=== PATIENT | male | born 1940 | race Caucasian/White ===

== ENCOUNTER 2017-12-28 15:49 | Inpatient (IN) | payer MEDICARE, OTHER, SELFPAY ==
[2017-12-28] VITALS (12 sets, daily range): BP systolic 124–163; BP diastolic 74–82; PULSE 64–101; RESP 16–31; TEMP 37.2; O2SAT 92–97
--- NOTE | 2017-12-28 16:12 | DI.RPTCT_ITS ---
SYMPTOM/DIAGNOSIS: BILAT LEG WEAKNESS, ? ACUTE CVA OR MASS NONCONTRAST HEAD CT: Comparison is made with 05/08/17 and 10/28/17. Since the prior examination, the patient has had a right frontal Osm[place] hole placed. There are persistent bilateral subdural hygromas which appear mostly chronic. There has developed high density material beneath the right posterior frontal bone and anterior parietal bone. This should be considered acute hemorrhage until proven otherwise. There is no acute midline shift or mass effect noted. The ventricles and sulci are consistent with the patient's age. The ventricles are intact. The basilar cisterns are patent. Areas of decreased attenuation are seen in the white matter consistent with small vessel ischemic disease. No acute fracture is appreciated. The visualized paranasal sinuses are mostly clear. The mastoid air cells are well pneumatized. IMPRESSION: 1. Hyperdense material seen along the right frontal and parietal convexity which was new compared to the CT scan from 10/28/17 and should be considered acute blood until proven otherwise. 2. Bilateral chronic appearing subdural hygromas. 3. No evidence of an acute fracture. 4. Interval placement of a right parietal Corina hole.
--- NOTE | 2017-12-28 16:14 | ED.GENADUL_ITS ---
Disposition Clinical Impression: Subdural hematoma, Generalized weakness, UTI (urinary tract infection), Dementia Disposition: [facility] INPATIENT Condition: Stable Medical Decision Making - Lab Data Laboratory Tests 12/28/17 12/28/17 12/28/17 16:30 16:30 16:30 WBC 11.47 H RBC 4.01 L Hgb 13.8 Hct 40.5 MCV 101.0 H MCH 34.4 H MCHC 34.1 RDW 12.6 Plt Count 102 L MPV 9.3 Immature Gran % 0.2 Neutrophils % 60.3 Lymphocytes % 16.4 Monocytes % 23.0 Eosinophils % 0.0 Basophils % 0.1 Absolute Neutrophils 6.92 H Absolute Lymphocytes 1.88 Absolute Monocytes 2.64 H Absolute Eosinophils 0.00 Absolute Basophils 0.01 Differential Comment Diff reviewed RBC Morphology Normal Sodium 139 Potassium 3.8 Chloride 105 Carbon Dioxide 28.9 Anion Gap 5.1 BUN 16 Creatinine 1.18 Estimated GFR/1.73 m2 59.70 Glucose 82 Calcium 8.3 L Magnesium 1.9 Total Bilirubin 1.1 H AST 15 ALT 20 Alkaline Phosphatase 49 Troponin I < 0.02 Total Protein 6.6 Albumin 3.2 L Urine Color Yellow Urine Clarity Sl cloudy Urine pH 5.5 Ur Specific [place] >= 1.030 H Urine Protein 100 H Urine Ketones Trace H Urine Blood Large H Urine Nitrite Positive H Urine Bilirubin Negative Urine Urobilinogen 1.0 H Ur Leukocyte Esterase Small H Urine RBC Not Applicable Urine WBC >50 Ur Epithelial Cells Not Applicable Urine Crystals Not Applicable Urine Bacteria Not Applicable Urine Mucus Moderate Ur Culture Indicated? Yes Urine Glucose Negative - EKG Data -: EKG Interpreted by Me 12/28/17 1628: 72 bpm. Read as atrial fibrillation but appears sinus. No acute ST elevation or depression. - Radiology Data Radiology results: report reviewed, image reviewed CT head: Bilateral subdural hygromas, appearing mostly chronic. However there is a small more acute hyperdense collection along the right posterior frontal convexity. A subacute left frontal collection seen previously now appears more chronic. The overall size appears slightly smaller on the right, measuring less than 1 cm with a left-sided chronic subdural hygroma measuring 9 mm in diameter. There is a small right high frontal portillo hole. Please note that the right-sided hyperdensity could reflect early calcification of an evolving subdural hematoma, but should be considered acute blood until proven otherwise. CT cervical spine: Multilevel cervical degenerative changes. No acute fracture dislocation or other trauma injury noted. Chest x-ray: No acute findings. Healing right-sided rib fractures. - Medical Decision Making 77-year-old male with a history of TBI with subdural hematoma status post fall in May 2017 as well as history of dementia presents with increasing generalized weakness for the past 3 weeks, worse today and associated with urinary frequency and urgency. Patient able to ambulate slowly back to room. Vitals within normal limits. He has some chronic tremors but no focal deficits. Abdomen soft and nontender. He is nontoxic-appearing. On initial eval, labs, urinalysis, CT head/C-spine, and chest x-ray ordered. EKG notes a rate of 72 and sinus. Read as atrial fibrillation but does not appear consistent with this. There are no acute ST or T-wave changes. 1800 --labs and imaging reviewed. White blood cell count 11.47. Platelets 102. Urinalysis notes greater than 50 WBCs as well as positive nitrates. Appears consistent with UTI. Electrolytes within normal limits. CT head discussed with [facility] -they noted chronic bilateral subdural hygromas as well as a new right-sided hyperdensity which may be a subacute versus acute rebleed but also may be calcification. Recommend consultation with neurosurgery for evaluation and consideration of rescan and 12-24 hours. Will give a dose of ceftriaxone. [facility] neurosurgery paged and images sent. 2024 --transfer center connected me with neurology and not neurosurgery. Multiple calls made to contact neurosurgery but no response yet. 2129 --discussed with [facility] neurosurgery -recommend to hold patient's aspirin, give his usual Depakote, and repeat CT head in the morning. They state there would be no surgical intervention at this time. Also recommend checking PT/INR as concern would be for INR greater than 1.6. Will admit for generalized weakness with falls and history of UTI and dementia. states home health comes twice weekly and she is concerned about his safety at home. 2219 -- D/w Dr. Huang -accepts patient for admission. History of Present Illness - General Chief complaint: GenMedical Stated complaint: PER DR MI Time Seen by Provider: 12/28/17 16:04 Source: patient, family Mode of arrival: ambulatory Limitations: no limitations - History of Present Illness Initial comments: Patient is a 77-year-old male with a history of TBI with subdural hematomas status post fall in May 2017 and dementia who presents with increasing weakness over the past 3 weeks, and worse today with fall. Also admits to urinary frequency and urgency today. states that patient could not get out of bed today due to weakness and upon standing was tilted backward and then fell. She is unsure if he hit his head but denies LOC or vomiting. She states he receives home health twice weekly due to his dementia and generalized weakness. Patient has been eating and drinking okay, denies known fever, chest pain or shortness of breath or hematuria. - Related Data Metronidazole [Metrogel] 1 natanael TP BID PRN #3 tube 12/19/14 Fluticasone Propionate [Flonase] 2 sprays NS BID PRN #3 bottle 02/19/16 Tacrolimus 1 - 2 gm TP DAILY PRN #3 tube 04/25/16 Syringe W-Cannula,Disp, 3 ml [Syringe] 1 each MC Qweek #12 ndl 11/13/16 Cyanocobalamin (Vitamin B-12) [Cyanocobalamin Injection] 1,000 mcg IM Q 21 days #4 vial 05/26/17 Aspirin [Aspirin EC] 81 mg PO DAILY tab-cap 06/22/17 Divalproex Sodium 2 tab PO BID #360 tab-cap 07/14/17 Ropinirole HCl 1 mg PO HS #90 tab-cap 07/16/17 Atorvastatin Calcium 10 mg PO DAILY #90 tab-cap 10/05/17 Metoprolol Succinate 1 tab PO DAILY #90 tab-cap 10/06/17 Venlafaxine HCl [Venlafaxine Hcl Er] 150 mg PO DAILY #90 tab-cap 10/06/17 Tamsulosin HCl 2 tab PO DAILY #90 tab-cap 11/23/17 Cholecalciferol (Vitamin D3) [Vitamin D3] 5,000 unit PO 12/29/17 Lisinopril 40 mg PO 12/29/17 Allergies Allergy/AdvReac Type Severity Reaction Status Date / Time No Known Allergies Allergy Unverified 12/28/17 22:07 Review of Systems Constitutional: denies: chills, fever Eyes: denies: eye pain ENT: denies: ear pain, dental pain Respiratory: denies: cough, shortness of breath Cardiovascular: denies: chest pain, dyspnea on exertion Gastrointestinal: abdominal pain. denies: nausea, vomiting, diarrhea Genitourinary: urgency, frequency. denies: dysuria, hematuria Musculoskeletal: denies: back pain Skin: denies: rash, lesions Neurological: weakness. denies: headache, numbness Past Medical History - Past Medical History Medical history: dementia, hypertension BPH, History of GI bleed, TBI Surgical history: cholecystectomy, other (Pilonidal cystectomy, Hammer toe excision, TURP, Skin cancer resection) - Social History Smoking status: never smoker Alcohol use: occasionally Drug use: none General Exam - General Limitations: no limitations General appearance: alert, in no apparent distress - Head Head exam: Present: atraumatic, normocephalic - Eye Eye exam: Present: PERRL, EOMI - ENT ENT exam: Present: mucous membranes moist - Neck Neck exam: Present: normal inspection - Respiratory Respiratory exam: Present: normal lung sounds bilaterally. Absent: respiratory distress, wheezes, rales, rhonchi, stridor - Cardiovascular Cardiovascular Exam: Present: regular rate, normal rhythm. Absent: bradycardia , tachycardia - GI/Abdominal GI/Abdominal exam: Present: soft, normal bowel sounds. Absent: distended, tenderness, guarding, rebound, rigid - Extremities Exam Extremities exam: Present: full ROM - Neurological Exam Neurological exam: Present: alert, other (Oriented to place and time, not place , thinks at [place]. No facial droop. Muscle strength 5/5 bilateral upper and lower extremities.). Absent: motor sensory deficit - Psychiatric Psychiatric exam: Present: normal affect - Skin Skin exam: Present: warm, dry, intact Course Vital Signs - 24 hr 12/28/17 15:52 Temperature 99.0 F Pulse 64 Respiratory 18 Rate Blood Pressure 124/75 Pulse Oximetry 97
[2017-12-28 16:45] LABS: Bilirubin Negative (Negative); Blood Large (Negative); Clarity Sl Cloudy; Glucose Negative (Negative); Ketones Trace mg/dL (Negative); Leukocyte Esterase Small (Negative); Nitrite Positive (Negative); Specific Gravity >= 1.030 (1.005-1.025); pH 5.5 (5-8)
[2017-12-28 16:48] LABS: Abs Immature Grans 0.02 k/cumm (0.0-0.09); Absolute Basophil Count 0.01 k/cumm (0.0-0.2); Absolute Lymphocyte Count 1.88 k/cumm (1.2-3.4); Absolute Monocyte Count 2.64 k/cumm (0.11-0.7); Absolute Neutrophil Count 6.92 k/cumm (1.2-6.7); Basophils % 0.1; HCT 40.5 % (40.0-50.0); HGB 13.8 g/dL (13.5-17.5); Immature Grans % 0.2; Lymphocytes % 16.4; Mean Corp. HGB Concentration 34.1 g/dL (32.0-36.0); Mean Corpuscular Hemoglobin 34.4 pg (27.0-33.0); Mean Platelet Volume 9.3 fL (8.0-11.0); Neutrophils % 60.3; Platelet Count 102 x1000/uL (130-400); RBC 4.01 m/cumm (4.50-6.00); RBC Distribution Width 12.6 % (11.8-14.1); White Blood Cell Count 11.47 k/cumm (4.4-10.8)
--- NOTE | 2017-12-28 16:48 | DI.REPORT_ITS ---
SYMPTOM/DIAGNOSIS: WEAKNESS PA AND LATERAL CHEST: Comparison is made with 05/08/17. Heart size and pulmonary vasculature are within normal limits. The lungs are clear and well expanded. There are non united fractures involving the posterolateral aspects of the right seventh, eighth and ninth ribs. There is also a fracture of the posterior lateral aspect of the right sixth rib which may be subacute. No pneumothorax or pleural effusion is identified. Degenerative changes are seen in the spine. IMPRESSION: 1. No acute pulmonary process. 2. Multiple right sided rib fractures.
--- NOTE | 2017-12-28 16:48 | DI.RPTCT_ITS ---
SYMPTOM/DIAGNOSIS: S/P FALL, HIT HEAD, ? ACUTE FX CERVICAL SPINE CT: Multiple contiguous axial images of the cervical spine were obtained. Sagittal and coronal reformatted images were evaluated on the Siem[employer] work station. Comparison is made with 05/08/17. There is normal alignment of the cervical spine. No acute fractures or subluxations are seen. There are again seen moderately severe degenerative changes in the cervical spine. The findings are most marked at C 5-6 and C 6-7. There is no prevertebral soft tissue swelling. The lung apices appear clear. IMPRESSION: No acute fracture or subluxation of the cervical spine.
[2017-12-28 16:52] LABS: C & S Indicated? Yes; Mucus Moderate (Negative); WBC >50 HPF (0-5)
[2017-12-28 17:01] LABS: Diff Comment Diff Reviewed; RBC Morphology Normal
[2017-12-28 17:03] LABS: ALT 20 U/L (12-78); AST 15 U/L (15-37); Albumin 3.2 g/dL (3.4-5.0); Alkaline Phosphatase 49 U/L (46-116); Anion Gap 5.1 mmol/L (3-11); BUN 16 mg/dL (7-18); Bilirubin, Total 1.1 mg/dL (0.2-1.0); CO2 28.9 mmol/L (21.0-32.0); CREATININE 1.18 mg/dL (0.70-1.30); Calcium 8.3 mg/dL (8.5-10.1); Chloride 105 mmol/L (98-107); Glucose 82 mg/dL (70-100); Magnesium 1.9 mg/dL (1.8-2.4); Potassium 3.8 mmol/L (3.5-5.1); Sodium 139 mmol/L (136-145); Total Protein 6.6 g/dL (6.4-8.2); Troponin I < 0.02 ng/mL (0.00-0.06)
--- NOTE | 2017-12-28 17:12 | DI.VRAD_ITS ---
EXAM: CT Head Without Intravenous Contrast CLINICAL HISTORY: 77 years old, male; Signs and symptoms; Weakness, extremity; Bilateral; Patient HX: Bilateral leg weakness; Additional info: R/O acute cva/mass TECHNIQUE: Axial computed tomography images of the head/brain without intravenous contrast. Coronal and sagittal reformatted images were created and reviewed. COMPARISON: CT - HEAD WITHOUT CONTRAST 10/28/2017 1:37 PM FINDINGS: Brain: There are again bilateral subdural hygromas, appearing mostly chronic. However, there is a small, more acute, hyperdense collection along the right posterior frontal convexity. A subacute left frontal collection seen previously now appears more chronic. The overall size appears slightly smaller on the right, measuring less than 1 cm, with a left-sided chronic subdural hygroma measuring 9 mm in diameter. There is a small right high frontal portillo hole. No hemorrhage. Ventricles: There is moderate to severe diffuse involutional change with commensurate ventriculomegaly. Bones/joints: Unremarkable. No acute fracture. Soft tissues: Unremarkable. Sinuses: Unremarkable as visualized. No acute sinusitis. Mastoid air cells: Unremarkable as visualized. No mastoid effusion. IMPRESSION: There are again bilateral subdural hygromas, appearing mostly chronic. However, there is a small, more acute, hyperdense collection along the right posterior frontal convexity. A subacute left frontal collection seen previously now appears more chronic. The overall size appears slightly smaller on the right, measuring less than 1 cm, with a left-sided chronic subdural hygroma measuring 9 mm in diameter. There is a small right high frontal portillo hole. Please note that the right-sided hyperdensity could reflect early calcification of an evolving subdural hematoma, but should be considered acute blood until proven otherwise. THIS REPORT CONTAINS FINDINGS THAT MAY BE CRITICAL TO PATIENT CARE. The findings were verbally communicated via telephone conference with ivania nunez at 5:12 PM EDT on 12/28/2017. The findings were acknowledged and understood. Dictated and Authenticated by: Henrique Skelton MD. Ordering:MARIA LUISA ANDERSEN MD
--- NOTE | 2017-12-28 17:15 | DI.VRAD_ITS ---
EXAM: XR Chest, 2 Views CLINICAL HISTORY: 77 years old, male; Signs and symptoms; Other: Weakness; Additional info: R/O acute fracture TECHNIQUE: Frontal and lateral views of the chest. COMPARISON: CR - RIGHT RIBS TO INCLUDE CXR 05/08/2017 11:10 AM FINDINGS: Lungs: Unremarkable. No consolidation. Pleural space: Unremarkable. No pneumothorax. Heart: Unremarkable. No cardiomegaly. Mediastinum: Unremarkable. Bones/joints: There is tortuosity of the descending aorta. This appears stable. There are now chronic right-sided rib fractures, with some callous formation. IMPRESSION: No acute findings. Healing right sided rib fractures, involving approximately the right sixth, seventh, eighth and ninth ribs. Dictated and Authenticated by: Henrique Skelton MD. Ordering:MARIA LUISA ANDERSEN MD
--- NOTE | 2017-12-28 17:24 | DI.VRAD_ITS ---
EXAM: CT Cervical Spine Without Intravenous Contrast CLINICAL HISTORY: 77 years old, male; Injury or trauma; Fall; Initial encounter; Blunt trauma; Patient HX: S/P fall and hit head with bilateral leg weakness; Additional info: R/O acute fracture TECHNIQUE: Axial computed tomography images of the cervical spine without intravenous contrast. Coronal and sagittal reformatted images were created and reviewed. COMPARISON: CT - HEAD AND CSPINE W/O CONTRAST 05/08/2017 11:05 AM FINDINGS: Vertebrae: Unremarkable. No acute fracture. Discs/spinal canal/neural foramina: There is severe disc narrowing at C5-6, with anterior and posterior osteophytes. There is moderate disc narrowing at C6-7 with more mild anterior and posterior osteophytes. There is multilevel uncinate and facet hypertrophy with multilevel moderate or severe neuroforaminal stenosis. There is no significant central stenosis at any level. Soft tissues: Unremarkable. Lung apices: Unremarkable as visualized. IMPRESSION: Multilevel cervical degenerative changes. No acute fracture, dislocation or other trauma injury is seen. Dictated and Authenticated by: Henrique Skelton MD. Ordering:MARIA LUISA ANDERSEN MD
[2017-12-28] MEDS: Acetaminophen 325 MG TAB 650 MG PO (21:53)
[2017-12-28 22:15] LABS: INR 1.1 (1.0-3.5); Prothrombin Time 10.4 sec (9.3-10.8)
[2017-12-28 22:28] LABS: PTT Activated 23.7 sec (21.0-31.4)
[2017-12-29] VITALS (16 sets, daily range): BP systolic 134–190; BP diastolic 74–98; PULSE 72–144; RESP 18; TEMP 37.1–38.5; O2SAT 93–95
[2017-12-29] MEDS: Divalproex 500 MG TABEC 1000 MG PO ×3 (00:43→19:36)
[2017-12-29] MEDS: Phenazopyridine 100 MG TAB PO (01:03)
--- NOTE | 2017-12-29 03:18 | PDOC.HP ---
Date of Service: 12/29/17 Time of Service: 03:19 Assessment/Plan - Assessment/Plan (1) Acute on chronic intracranial subdural hematoma Plan: Hold aspirin for now and recheck CT of the brain in the morning (2) Traumatic brain injury Plan: Continue current antiseizure medications and check valproic acid level (3) Focal epilepsy Plan: As above (4) UTI (urinary tract infection) Plan: Patient was given Rocephin in the emergency room. Patient can take oral antibiotics have switched him to ciprofloxacin 500 mg p.o. twice daily. Check urine cultures and modify antibiotics based on culture and sensitivity results (5) Generalized muscle weakness Plan: Consult physical therapy to evaluate strength and gait and balance and initiate treatment. (6) Gait instability Plan: As above History of Present Illness - History of Present Illness Chief Complaint: generalized weakness; s/p fall History of Present Illness: 77-year-old male with a history of TBI secondary to subdural hematomas sustained in May 2017 and secondary seizures due to brain trauma was brought into the emergency department with complaints of 3 weeks of progressive weakness leading to a fall today. reported that the patient could not get out of bed due to generalized weakness and upon standing the patient fell backwards. She was unsure whether he hit his head but denied that he had any loss of consciousness or vomiting. There is been no recent loss of appetite and no noted fevers or headaches or breakthrough seizures. Because of his previous history of subdural hematoma requiring a craniotomy and evacuation earlier this year and given his fall he underwent CT scanning of his head. CT of his head showed bilateral subdural hygromas appear to be chronic however there is a small more acute hyperdense collection on the right posterior frontal convexity. The previously seen subacute left frontal collection this report is appearing more chronic. The left-sided collection measures 9 mm in diameter. Patient has a small right frontal portillo hole. The right-sided density measures less than a centimeter. The radiologist read the right side hyperdensity is possibly reflecting early calcification from an evolving subdural hematoma. Dr. Treasure Kelley reviewed the CT scan with a neurosurgeon from [facility] and they recommended admission overnight for observation and repeat CT scan of his head in the morning. Other images that were obtained included CT of his spine and chest x-ray. Chest x-ray showed no acute findings he has healing right-sided rib fractures involving the right sixth seventh eighth and ninth ribs. Cervical spine shows multilevel cervical degenerative changes with no fracture dislocation. Lab workup included a CBC, prothrombin time and APTT, CMP, and a UA. Urinalysis was suspicious for UTI being positive for nitrites large amount of blood trace of ketones 100 mg/dL protein in Jassi 50 white cells per high-powered field and moderate mucus. Urine culture was sent the patient was given a dose of ceftriaxone 1 g IV. CMP was unremarkable his troponin was less than 0.02 and his pro time and APTT were within normal limits. CBC was remarkable for a white count of 11,004 and 70 with no anemia but macrocytic changes to the red cells. Patient is admitted on observation status for a follow-up CT scan of his head to ensure that there is been no acute subdural bleeding. Physical therapy be consult in the morning to evaluate his gait and balance and strength. Patient has been started on antibiotics for UTI which will be switched to oral antibiotics. 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 - Past Surgical History Past Surgical History: Cholecystectomy, Other (R. hammer toe 2008; pilonidal cyst; R. hand tendon repair 09/2017; craniotomy and R. subdural hematoma evacuation October 2017), TURP - Past Family History Family History: CAD (mother), DM (mother), Other (father had COPD) - Past Social History Smoke: Quit Occupation: retired teacher Alcohol: None (former alcohol abuse; none since 2017) Drugs: None Lives: With Family Review of Systems - Review of Systems Other: Limited review of systems as the patient is an unreliable historian. - Medications/Allergies Allergies/Adverse Reactions: Allergies Allergy/AdvReac Type Severity Reaction Status Date / Time No Known Allergies Allergy Unverified 12/28/17 22:07 Medications: Current Medications Acetaminophen (Tylenol) 325 - 650 mg PO Q4H PRN PRN Al Hydrox/Mg Hydrox/Simethicone (Mylanta Liquid) 30 ml PO Q2H PRN PRN Atorvastatin Calcium (Lipitor) 10 mg PO HS LYLA Ciprofloxacin HCl (Cipro) 500 mg PO BID LYLA Dimethicone/Zinc Oxide (Evan Protect Cream) 0 gm TP PRN PRN Divalproex Sodium (Depakote) 1,000 mg PO BID LYLA Docusate Sodium (Colace) 100 mg PO TID PRN PRN Fluticasone Propionate (Flonase) 1 gm NS BID PRN PRN IV Miscellaneous Supplies () 1 each IV DIRECTED LYLA Magnesium Hydroxide (Milk Of Magnesia) 30 ml PO DAILY PRN PRN Metoprolol Succinate (Toprol Xl) 50 mg PO DAILY LYLA Non-Formulary Medication (Metronidazole [Metrogel]) 1 natanael TP BID PRN PRN Non-Formulary Medication (Tacrolimus [Tacrolimus]) 1 - 2 gm TP DAILY PRN Polyethylene Glycol (Miralax) 17 gm PO DAILY PRN PRN PRN Reason: Constipation Ropinirole HCl (Requip) 1 mg PO HS [facility] Sodium Chloride (Saline Flush 10 Ml Syringe) 0 ml IVP PRN PRN Tamsulosin HCl (Flomax) 0.8 mg PO DAILY LYLA Venlafaxine HCl (Effexor Xr) 150 mg PO DAILY [facility] Active Medications Generic Name Dose Route Start Last Admin Trade Name Freq PRN Reason Stop Dose Admin Acetaminophen 325 - 650 mg 12/29/17 01:59 Tylenol PO Q4H PRN PRN Al Hydrox/Mg Hydrox/Simethicone 30 ml 12/29/17 01:59 Mylanta Liquid PO Q2H PRN PRN Atorvastatin Calcium 10 mg 12/29/17 22:00 Lipitor PO HS [facility] Ciprofloxacin HCl 500 mg 12/29/17 08:30 Cipro PO BID LYLA Dimethicone/Zinc Oxide 0 gm 12/29/17 01:59 Evan Protect Cream TP PRN PRN Divalproex Sodium 1,000 mg 12/29/17 08:30 Depakote PO BID LYLA Docusate Sodium 100 mg 12/29/17 01:59 Colace PO TID PRN PRN Fluticasone Propionate 1 gm 12/29/17 02:02 Flonase NS BID PRN PRN IV Miscellaneous Supplies 1 each 12/28/17 16:15 IV DIRECTED LYLA Magnesium Hydroxide 30 ml 12/29/17 01:59 Milk Of Magnesia PO DAILY PRN PRN Metoprolol Succinate 50 mg 12/29/17 08:30 Toprol Xl PO DAILY LYLA Non-Formulary Medication 1 natanael 12/29/17 02:02 Metronidazole [Metrogel] TP BID PRN PRN Non-Formulary Medication 1 - 2 gm 12/29/17 02:02 Tacrolimus [Tacrolimus] TP DAILY PRN Polyethylene Glycol 17 gm 12/29/17 01:59 Miralax PO DAILY PRN PRN Constipation Ropinirole HCl 1 mg 12/29/17 22:00 Requip PO HS [facility] Sodium Chloride 0 ml 12/28/17 16:11 Saline Flush 10 Ml Syringe IVP PRN PRN Tamsulosin HCl 0.8 mg 12/29/17 08:30 Flomax PO DAILY LYLA Venlafaxine HCl 150 mg 12/29/17 08:30 Effexor Xr PO DAILY [facility] Metronidazole [Metrogel] 1 natanael TP BID PRN #3 tube 12/19/14 Fluticasone Propionate [Flonase] 2 sprays NS BID PRN #3 bottle 02/19/16 Tacrolimus 1 - 2 gm TP DAILY PRN #3 tube 04/25/16 Syringe W-Cannula,Disp, 3 ml [Syringe] 1 each Qweek #12 ndl 11/13/16 Cyanocobalamin (Vitamin B-12) [Cyanocobalamin Injection] 1,000 mcg IM Q 21 days #4 vial 05/26/17 Aspirin [Aspirin EC] 81 mg PO DAILY tab-cap 06/22/17 Divalproex Sodium 2 tab PO BID #360 tab-cap 07/14/17 Ropinirole HCl 1 mg PO HS #90 tab-cap 07/16/17 Atorvastatin Calcium 10 mg PO DAILY #90 tab-cap 10/05/17 Metoprolol Succinate 1 tab PO DAILY #90 tab-cap 10/06/17 Venlafaxine HCl [Venlafaxine Hcl Er] 150 mg PO DAILY #90 tab-cap 10/06/17 Tamsulosin HCl 2 tab PO DAILY #90 tab-cap 11/23/17 Objective - Exam Vitals and I&O: Vital Signs Temp 37.7 C H 12/29/17 00:18 Pulse 72 12/29/17 00:18 Resp 18 12/29/17 00:18 BP 156/83 12/29/17 00:18 Pulse Ox 94 L 12/29/17 00:18 Intake & Output 12/28/17 12/28/17 12/29/17 11:59 23:59 11:59 Weight 97.976 kg General: Alert, Oriented x3 (Oriented to person), Cooperative, No acute distress HEENT: Atraumatic, PERRLA, EOMI, Mucous membr. moist/pink Neck: Supple, +2 carotid pulse wo bruit. denies: JVD, Thyromegaly, LAD Lungs: Clear to auscultation, Normal air movement Cardiovascular: Murmurs (Soft systolic murmur over the apex grade 2/6), Other (Regular with frequent ectopic beats) Abdomen: Normal bowel sounds, Soft. denies: Tenderness, Hepatospenomegaly, Masses Extremities: Normal pulses. denies: Cyanosis, Edema, Tenderness/swelling Skin: denies: Rashes Neurological: Other (Speech is slow and hesitating but coherent and not dysarthric, patient has a tremor of his jaw, he has a resting tremor in his right hand, strength is equal in both upper and lower extremities. He has no facial asymmetry he has full extraocular motion intact sensation intact to light touch in both upper and lower extremities) Psych/Mental Status: Mental status NL, Mood NL Results - Laboratory Data Result Diagrams: 12/28/17 16:30 12/28/17 16:30 Laboratory Results: Laboratory Tests 12/28/17 12/28/17 12/28/17 16:30 16:30 16:30 WBC 11.47 H RBC 4.01 L Hgb 13.8 Hct 40.5 MCV 101.0 H MCH 34.4 H MCHC 34.1 RDW 12.6 Plt Count 102 L MPV 9.3 Immature Gran % 0.2 Neutrophils % 60.3 Lymphocytes % 16.4 Monocytes % 23.0 Eosinophils % 0.0 Basophils % 0.1 Absolute Neutrophils 6.92 H Absolute Lymphocytes 1.88 Absolute Monocytes 2.64 H Absolute Eosinophils 0.00 Absolute Basophils 0.01 Differential Comment Diff reviewed RBC Morphology Normal PT INR APTT Sodium 139 Potassium 3.8 Chloride 105 Carbon Dioxide 28.9 Anion Gap 5.1 BUN 16 Creatinine 1.18 Estimated GFR/1.73 m2 59.70 Glucose 82 Calcium 8.3 L Magnesium 1.9 Total Bilirubin 1.1 H AST 15 ALT 20 Alkaline Phosphatase 49 Troponin I < 0.02 Total Protein 6.6 Albumin 3.2 L Urine Color Yellow Urine Clarity Sl cloudy Urine pH 5.5 Ur Specific [place] >= 1.030 H Urine Protein 100 H Urine Ketones Trace H Urine Blood Large H Urine Nitrite Positive H Urine Bilirubin Negative Urine Urobilinogen 1.0 H Ur Leukocyte Esterase Small H Urine RBC Not Applicable Urine WBC >50 Ur Epithelial Cells Not Applicable Urine Crystals Not Applicable Urine Bacteria Not Applicable Urine Mucus Moderate Ur Culture Indicated? Yes Urine Glucose Negative 12/28/17 12/28/17 21:56 21:56 WBC RBC Hgb Hct MCV MCH MCHC RDW Plt Count MPV Immature Gran % Neutrophils % Lymphocytes % Monocytes % Eosinophils % Basophils % Absolute Neutrophils Absolute Lymphocytes Absolute Monocytes Absolute Eosinophils Absolute Basophils Differential Comment RBC Morphology PT 10.4 INR 1.1 APTT 23.7 Sodium Potassium Chloride Carbon Dioxide Anion Gap BUN Creatinine Estimated GFR/1.73 m2 Glucose Calcium Magnesium Total Bilirubin AST ALT Alkaline Phosphatase Troponin I Total Protein Albumin Urine Color Urine Clarity Urine pH Ur Specific [place] Urine Protein Urine Ketones Urine Blood Urine Nitrite Urine Bilirubin Urine Urobilinogen Ur Leukocyte Esterase Urine RBC Urine WBC Ur Epithelial Cells Urine Crystals Urine Bacteria Urine Mucus Ur Culture Indicated? Urine Glucose - Imaging Studies Imaging Studies: ECG sinus rhythm with frequent PACs and nonspecific intraventricular conduction delay Noncontrast CT scan of the head shows bilateral subdural hygromas report is appearing mostly chronic but there is small more acute hyperdense collection on the right posterior frontal convexity. Right side measuring less than 1 cm and the left sided chronic subdural hygroma measures 9 mm in diameter. He has an old small right frontal portillo hole. PA and lateral chest x-ray shows no acute finding he has healing right-sided rib fractures involving right 6/7 and eighth and ninth ribs Cervical spine CT without contrast shows multilevel cervical degenerative changes no acute fracture dislocation
[2017-12-29 06:54] LABS: Abs Immature Grans 0.03 k/cumm (0.0-0.09); Absolute Basophil Count 0.01 k/cumm (0.0-0.2); Absolute Lymphocyte Count 2.28 k/cumm (1.2-3.4); Basophils % 0.1; HCT 41.8 % (40.0-50.0); HGB 14.2 g/dL (13.5-17.5); Immature Grans % 0.2; Lymphocytes % 18.9; Mean Platelet Volume 9.6 fL (8.0-11.0); Monocytes % 20.3; Neutrophils % 60.5; Platelet Count 102 x1000/uL (130-400); RBC 4.18 m/cumm (4.50-6.00); RBC Distribution Width 12.8 % (11.8-14.1); White Blood Cell Count 12.04 k/cumm (4.4-10.8)
--- NOTE | 2017-12-29 07:00 | DI.RPTCT_ITS ---
SYMPTOM/DIAGNOSIS: F/U SUBDURAL HEMORRHAGE NONCONTRAST HEAD CT: Comparison is made with the day prior. There has been no change in the extra- axial hyperdense collection along the right frontal convexity. There are stable bilateral chronic subdural hygromas. The ventricles and sulci are stable. There is unchanged small vessel ischemic disease present. There is a Corina hole again seen in the right parietal bone. No acute skull fracture is seen. IMPRESSION: Stable subdural hemorrhage along the right frontal and parietal convexity.
[2017-12-29 07:09] LABS: Absolute Monocyte Count 2.44 k/cumm (0.11-0.7); Absolute Neutrophil Count 7.28 k/cumm (1.2-6.7)
[2017-12-29] MEDS: Tamsulosin 0.4 MG CAPCR 0.8 MG PO (08:01)
[2017-12-29] MEDS: Ciprofloxacin 500 MG TAB PO (08:01)
[2017-12-29] MEDS: Metoprolol CR 50 MG TABCR PO (08:01)
[2017-12-29] MEDS: Venlafaxine 150 MG CAPCR PO (08:01)
[2017-12-29] MEDS: Normal Saline Flush 10 ML SYR IVP (08:05)
--- NOTE | 2017-12-29 10:52 | IN_ITS ---
INPATIENT PHYSICAL THERAPY EVALUATION Date: 12/29/17 Referring Doctor: Jesse Huang PT Orders: PT Consult generalized weakness, decreased ADL performance, gait instability Precautions: Fall and Seizure precautions PATIENT PROFILE/ADMITTING DIAGNOSIS: Pt is a 77yr old male admitted with chronic intracranial subdural hematoma, progressive weakness x 3 weeks and fall in home setting. PMHX: mild cognitive impairment, attention deficit disorder, traumatic brain injury, subdural hematoma, s/p craniotomy right frontal lobe, seizures, Parkinson's tremors right upper extremity and jaw due to use of Depakote, right rib fractures 6-9, cervical spine degenerative changes, peripheral neuropathy, anxiety, depression, alcohol abuse, obstructive sleep apnea, restless leg syndrome, B12 deficiency, hyperlipidemia, hypertension, benign prostatic hypertrophy, TURP, right hand tendon repair, cholecystectomy Social History/Home Situation: Lives with his in a 2 level house, stays on upstairs of home, 15 steps with railing to upstairs level. Baseline mobility per patient and in room, independent gait with no device, independent stairs, independent ADLS. states he has gotten weaker in the last few weeks making it difficult for him to mobilize. Equipment owned/DME: FWW, commode, wheelchair SUBJECTIVE: Pt lying in bed, alert and agreeable to PT consult. States he feels better than he did yesterday. Oriented to name, month and year but could not state hospital or town he was in. Patient able to provide home information and present in room providing additional information. OBJECTIVE: General Observation: wearing telemetry, pt using pull up- pt incontinent of urine and stool when initiated standing at edge of bed [facility] with clean up by BREWERY PUMPER Mental Status: A& O x3 Pain: no c/o pain ROM: RUE: AROM shoulder flexion 95, elbow and wrist WNL LUE AROM shoulder flexion 120, elbow and wrist WNL RLE AROM hip flexion 100, knee and ankle WNL LLE AROM hip flexion 100, knee and ankle WNL, slightly tight with end range knee extension due to hamstring tightness STRENGTH: RUE 3/5 shoulder flexion, 5/5 bicep, 5/5 courtesy driver LUE 3/5 shoulder flexion, 5/5 bicep, 5/5 courtesy driver RLE 4/5 hip flexion, 5/5 quad, 5/5 DF/PF LLE 4/5 hip flexion, 4/5 quad, 5/5 DF/PF BED MOBILITY/TRANSFERS: Supine-sit: HOB 35 degrees, supervision Sit-stand: SBA with FWW Bed-commode and commode-chair: SBA with FWW Stand-sit: SBA GAIT: SBA with FWW [id number], steady step through gait pattern, pt required verbal cues to stand closer to FWW. Pt left up in chair with fall alarm activated after session completed, in room BALANCE: Static sitting normal Dynamic Sitting normal Static Standing fair Dynamic Standing fair SPECIAL TESTS: Mobility Limitations Standardized Measure [facility] AM -PAC 6 clicks Basic Mobility Inpatient Short Form: raw score: 18 standardized score: 43.63 CMS score: 46.58% CMS modifier: CK INFORMED CONSENT/EDUCATION: Pt instructed in purpose of PT Consult and plan of care ASSESSMENT: Pt is a 77yr old male admitted with chronic intracranial subdural hematoma, progressive weakness x 3 weeks and fall in home setting in setting of mild cognitive impairment, attention deficit disorder, traumatic brain injury, subdural hematoma, s/p craniotomy right frontal lobe, seizures, 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 Patient presents with the following impairment level findings: decreased bilateral shoulder ROM and strength, decreased strength with standing transfers , gait mobility requiring FWW for gait stability due to decreased static and dynamic standing balance. Pt weaker than baseline of independent mobility but has a walker at home he can use if he needs one, will need to perform stair training prior to return to home setting as patient stays on 2nd level of home. Pt will benefit from short term skilled therapy intervention as well as home PT at discharge. Impairments are contributing to the following functional limitations: AMPAC score CMS score: 46.58% Patient is assessed as a * high 25817 complexity based on the following: History: see PMHX Examination: decreased bilateral shoulder ROM and strength, decreased strength with standing transfers, gait mobility requiring FWW for gait stability due to decreased static and dynamic standing balance. Presentation: evolving Decision Making: AMPAC score CMS score: 46.58% GOALS Goals x1 week 1. Supine-sit: independent 2. Sit-Supine independent 3. Sit-Stand supervision 4. Stand-sit supervision 5. Bed-chair SBA no device 6. Chair-bed SBA no device 7. Gait supervision with FWW [id number]. Stairs: up/down 15 steps with railing, SBA PLAN OF CARE/TREATMENT PLAN: 1-2x/day, 7 days/ week x 1 week Plan of care has been reviewed with the FLAKING ROLL OPERATOR providing the service under Physical therapy direction. Initiate physical therapy intervention for strengthening, bed mobility, transfers, gait, stairs, balance training, use of assistive device. DISCHARGE RECOMMENDATIONS Home with TREATMENT TIME/MINUTES/CODES 27min IE 9:30 G Codes in the area mobility of walking and moving around: current status [id number] CK projected status GP [id number] . Discharge status ( if discharging) GP [id number] gyxpr on AMPAC score CMS score: 46.58% Yolanda Galvan PT
--- NOTE | 2017-12-29 12:45 | PDOC.CMIN ---
Date of Service: 12/29/17 Time of Service: 12:45 Care Management Initial Assess REASON FOR HOSPITALIZATION:: Possible acute subdural hematoma, UTI, weakness. PAST MEDICAL HISTORY/PAST SURGICAL HISTORY:: TBI, ADD, subdural hematoma, seizures, Parkinson's disease, peripheral neuropathy, focal epilepsy, anxiety, depression, ETOH abuse, sleep apnea, restless leg syndrome, B12 deficiency, hyperlipidemia, hypertension, benign prostatic hypertrophy. Surgical hx: TURP, right hand tendon repair, cholectystectomy. PREVIOUS FUNCTIONAL STATUS/SOCIAL/FAMILY SUPPORTS:: Fabian resides in his own home with his , Melani, in [place]. Melani reports that the home is two levels and that Fabian stays upstairs when home. Melani reports that Fabian ambulates independently at baseline and that he is independent with his ADLs. He has required increased assistance over the last few weeks due to weakness. CURRENT FUNCTIONAL STATUS:: Fabian is lying in bed with his , Melani, at bedside when CM visits this morning. He is engaged in conversation and makes good eye contact. Melani is very talkative and voices her concerns about Fabian and his incontinence. She is worried about him being at home and having to clean the bed multiple times per day. CM offered resources regarding mattress pads and incontinence supplies. Fabian did not sign the OBV form while in the ER because Melani had questions and concerns regarding observation status and insurance. CM discussed pt's insurance (Medicare and [employer]) and the determination by the admitting MD, acute vs. observation. Following a lengthy discussion, Melani and Fabian stated that they felt they now had enough information, and signed the OBV form. CM faxed form to access. ADVANCE DIRECTIVES:: On file at [facility]. Has patient been provided with information about the portal?: No Did the patient sign up for the portal?: No CODE STATUS:: Full Code INSURANCE COVERAGE / FINANCIAL ISSUES:: Medicare, [employer]. CURRENT HOME/COMMUNITY SERVICES/EQUIPMENT:: Fabian has PT 2x/week and speech 1x/week in his home. PRIMARY CARE PHYSICIAN:: Alvina Avila. POTENTIAL DISCHARGE NEEDS:: Follow up appointment with primary care provider. PATIENT/FAMILY EDUCATION NEEDS:: Discharge education and any limitations and follow up plan of care. Ask Me Three discussion. ANTICIPATED BARRIERS TO DISCHARGE:: No anticipated barriers to discharge. TRANSPORTATION:: Fabian will transport via private vehicle with his , Melani. PLAN:: Fabian will discharge home when medically ready per MD. Anticipate pt will discharge with a resumption of home health services and follow up with his PCP. Fabian's , Melani, will transport pt via private vehicle. CM will continue to provide support to patient, family and care team regarding discharge planning and disposition.
--- NOTE | 2017-12-29 13:11 | INITIAL_ITS ---
Date of Service: 12/29/17 Time of Service: 12:45 Care Management Initial Assess REASON FOR HOSPITALIZATION:: Possible acute subdural hematoma, UTI, weakness. PAST MEDICAL HISTORY/PAST SURGICAL HISTORY:: TBI, ADD, subdural hematoma, seizures, Parkinson's disease, peripheral neuropathy, focal epilepsy, anxiety, depression, ETOH abuse, sleep apnea, restless leg syndrome, B12 deficiency, hyperlipidemia, hypertension, benign prostatic hypertrophy. Surgical hx: TURP, right hand tendon repair, cholectystectomy. PREVIOUS FUNCTIONAL STATUS/SOCIAL/FAMILY SUPPORTS:: Fabian resides in his own home with his , Melani, in [place]. Melani reports that the home is two levels and that Fabian stays upstairs when home. Melani reports that Fabian ambulates independently at baseline and that he is independent with his ADLs. He has required increased assistance over the last few weeks due to weakness. CURRENT FUNCTIONAL STATUS:: Fabian is lying in bed with his , Melani, at bedside when CM visits this morning. He is engaged in conversation and makes good eye contact. Melani is very talkative and voices her concerns about Fabian and his incontinence. She is worried about him being at home and having to clean the bed multiple times per day. CM offered resources regarding mattress pads and incontinence supplies. Fabian did not sign the OBV form while in the ER because Melani had questions and concerns regarding observation status and insurance. CM discussed pt's insurance (Medicare and [employer]) and the determination by the admitting MD, acute vs. observation. Following a lengthy discussion, Melani and Fabian stated that they felt they now had enough information, and signed the OBV form. CM faxed form to access. ADVANCE DIRECTIVES:: On file at [facility]. Has patient been provided with information about the portal?: No Did the patient sign up for the portal?: No CODE STATUS:: Full Code INSURANCE COVERAGE / FINANCIAL ISSUES:: Medicare, [employer]. CURRENT HOME/COMMUNITY SERVICES/EQUIPMENT:: Fabian has PT 2x/week and speech 1x /week in his home. PRIMARY CARE PHYSICIAN:: Alvina Avila. POTENTIAL DISCHARGE NEEDS:: Follow up appointment with primary care provider. PATIENT/FAMILY EDUCATION NEEDS:: Discharge education and any limitations and follow up plan of care. Ask Me Three discussion. ANTICIPATED BARRIERS TO DISCHARGE:: No anticipated barriers to discharge. TRANSPORTATION:: Fabian will transport via private vehicle with his , Melani. PLAN:: Fabian will discharge home when medically ready per MD. Anticipate pt will discharge with a resumption of home health services and follow up with his PCP. Fabian's , Melnai, will transport pt via private vehicle. CM will continue to provide support to patient, family and care team regarding discharge planning and disposition.
--- NOTE | 2017-12-29 16:32 | PHARADMIT ---
Addendum entered by Yen Allan 12/30/17 16:57: Pharmacy Note Subjective pt feels like he has to pee constantly per nursing report Objective BP-169/77 other VS-okay no labs Assessment lisinopril ordered to start tomorrow Plan continue to watch VS, labs and for med changes Original Note: Admission Pharmacy Clinical Review possible acute subdural hematoma, UTI, weakness, Code Status Full Code Current Weight 96.5 kg Renally Cleared and Narrow Therapeutic Index Meds Crcl~62.2 using adjusted body weight- current meds okay divalproex QTc Value / Action Taken QTc 409 n/a BP Control, Fever BP 159/74 Tmax 38.1 Electrolytes reviewed within normal limits DVT Prophylaxis none Opiate Usage / Scheduled Bowel Regimen Ordered no/prn Plt/SCr for Heparin / Enoxaparin plt 102 SCr 1.18 INR for Warfarin n/a H/H stable, WBC/Bands h/h 14.2/41.8 wbc 12.04 Antibiotic appropriateness PO cipro changed to IV ceftriaxone Cultures and Sensitivities urine culture prelim grew E.coli, C.diff negative Surgical ABX d/c within 24 hr n/a DM control / Insulin Dosing BG 82 Heart Failure (Check EF%) (PARAMJIT's, B-Block, Diuretics) metoprolol, lisinopril(home med) IV to PO Switch n/a Home Meds Reviewed yes Home Meds Not Ordered aspirin, cholecalciferol, cyanocobalamin, lisinopril Comments pts own metronidazole gel and tacrolimus ointment has not been checked by pharmacy yet
--- NOTE | 2017-12-29 16:54 | PROG.BLANK ---
Date of Service: 12/29/17 Time of Service: 15:45 Progress Note Brief update progress note: events: Repeat CT showed no change in epidural hematomas S: per , no significant change. Still not able to walk, incontinent of urine and once of stool. This hasn't changed since Thursday when change happened. Before that, states he had been getting better, able to do basic ADLs for himself and ready to transition to PT at office rather than just at home. She is worried about caring for him at home in his current state. O: lungs clear, heart RRR. neurologically no clear focal deficits on CN exam. His tone is increased in arms with some cog wheeling and he has jaw tremor. He moves all 4 extremities and at first seems to have slightly less strength in left leg but this isn't consistent. His sensation is intact to light touch including saddle. A/P: Recurrent subdurals, which likely explain his acute worsening. Also UTI which may be contributing to urinary incontinence. Treat this, I will go back to ceftriaxone given more ADRs with floroquinolones. Culture pending. I messaged Dr. Dick, who knows the patient. She will see him tomorrow.
[2017-12-29 19:30] LABS: VALPROIC ACID 77.2 ug/mL (50-100)
[2017-12-29] MEDS: Acetaminophen 325 MG TAB PO (19:36)
[2017-12-29] MEDS: Phenazopyridine 200 MG TAB PO (21:38)
[2017-12-29] MEDS: Atorvastatin 10 MG TAB PO (21:38)
[2017-12-29] MEDS: rOPINIRole 0.5 MG TAB 1 MG PO (21:39)
[2017-12-30] VITALS (7 sets, daily range): BP systolic 145–169; BP diastolic 75–87; PULSE 56–89; RESP 17–18; TEMP 36.3–37.8; O2SAT 93–96
[2017-12-30] MEDS: Divalproex 500 MG TABEC 1000 MG PO ×2 (09:03→19:30)
[2017-12-30] MEDS: Tamsulosin 0.4 MG CAPCR 0.8 MG PO (09:04)
[2017-12-30] MEDS: Phenazopyridine 200 MG TAB PO ×3 (09:04→19:30)
[2017-12-30] MEDS: Venlafaxine 150 MG CAPCR PO (09:04)
--- NOTE | 2017-12-30 11:07 | INPTTR_ITS ---
PHYSICAL THERAPY PROGRESS NOTE Date: 12/30/17 PRECAUTIONS: Fall and seizures SUBJECTIVE: Pt reports that he is doing well today. OBJECTIVE PAIN: BED MOBILITY/TRANSFERS Rolling L/R: Supine-sit: Sit-supine: Sit-stand: CGA Stand-sit: CGA Bed-Chair: Chair-bed: GAIT Assistive Device FWW Weightbearing Full Assist: CGA Distance: 60ft Deviation VITALS: THEREX: Pt completed UE and LE strengthening as per flow sheet, functional sit to stands, and marching in place for 1.5 min. STAIRS: ASSESSMENT: Pt tolerated today's session well. Pt did require some vc's and tactile cueing throughout his session. PLAN: Cont as per PT POC. TREATMENT CODES/TIME: 10:40-11:05
--- NOTE | 2017-12-30 12:16 | CMPROGNOTE_ITS ---
Date of Service: 12/30/17 Time of Service: 12:05 Care Management Progress Note S: Pt presented at interdisciplinary rounds. Fabian is sitting in his recliner , nodding off and on, when CM visits this morning. His , Melani, is at bedside. He reports that he is tired but is feeling better than yesterday. Melani reports that she was able to purchase incontinent mattress pads and other supplies for use when Fabian returns home. She reports that she is unsure where to purchase bed rails for the bed she recently purchased for her . CM recommended phoning the bed store where she purchased it. Melani seems a little more comfortable with the idea of Fabian returning home than she did yesterday when CM spoke with her. Fabian continues to receive IV antibiotics and is being monitored on telemetry. PT reports that Fabian did well with therapy yesterday and they will continue to work with him. At present, pt has PT 2x/week and speech 2x/week at home. Anticipate no changes in services at this time. A: 77 year old male admitted with possible acute subdural hematoma, UTI and weakness. P: Fabian will discharge home when medically ready per MD. Anticipate pt will continue with PT and speech 2/week with no increase in services. Fabian will transport via private vehicle with , Melani. CM will continue to provide support to patient, family and care team regarding discharge planning and disposition.
--- NOTE | 2017-12-30 14:06 | INPTTR_ITS ---
PHYSICAL THERAPY PROGRESS NOTE Date: 12/30/17 SUBJECTIVE: Pt stating he is getting better and feeling better overall. Agreeable to PT treatment. Post session after getting back in bed pt reporting not knowing where he is. His is present in the room and it takes him a few minutes before remembering where he is. OBJECTIVE Supine in bed upon entering room. BED MOBILITY/TRANSFERS Supine-sit: S Sit-supine: S Sit-stand: CGA Stand-sit: CGA GAIT Assistive Device FWW Weightbearing Full Assist: CGA Distance: 100' Deviation Veers left with the walker hitting meadows and door frames. THEREX: Pt performs UE/LE strengthening exercises as well as standing static balance tasks with Min A to maintain balance. See flow sheet for specifics. ASSESSMENT: Progressed well with this gait distance although requires walker management on turns and maintaining a straight path in the hallway. He is immediately confused after our session with pt asking where he is and why he is a patient. Pt's is present in the room and stating this is pretty typical. PLAN: Continue current POC progressing toward's established goals. TREATMENT CODES/TIME: 30 minutes TA/CHENG Diaz PTA
--- NOTE | 2017-12-30 14:35 | PDOC.PROG_ITS ---
Date of Service: 12/30/17 Time of Service: 13:00 Assessment/Plan - Assessment/Plan (1) Acute on chronic intracranial subdural hematoma Assessment: Symptoms clearly improving. Working well with PT. Will continue to monitor inpatient as he is not back to his baseline strength yet but he does seem to be on his way. I think we should continue off ASA indefinitely. I did discuss the case with Dr. Dick. Given his improvement, cancelled the formal consult but will plan to follow up with him. (2) UTI (urinary tract infection) Assessment: Urinary symptoms improving with treatment of UTI. He did have a fever last night, but no other signs of alternative infection. E. coli growing in urine. Continue ceftriaxone IV for now. (3) Hypertension Assessment: BPs mostly above goal. Was on 40mg lisinopril until a month ago per , stopped by Dr. Avila. Will try low dose at 5mg. I agree with no having agressive BP goal, but also want to avoid spikes. History of Present Illness - History of Present Illness Chief Complaint: weakness History of Present Illness: 24 hr: Tmax 38.5 overnight He feels better. Strength improving in legs. Per PT walked floor yesterday afternoon without difficulty. Incontinence and urinary frequency improving. He doesn't feel feverish or sick now. He is eating. Review of Systems - Review of Systems Constitutional: denies: Chills, Malaise Respiratory: denies: Cough, Shortness of Breath, Sputum Cardiovascular: denies: Chest Pain, Palpitations Gastrointestinal: Diarrhea. denies: Nausea, Vomiting, Abdominal Pain, Hematochezia Genitourinary: Frequency, Incontinence. denies: Dysuria Skin: Rash Neurological: denies: Confusion, Seizures - Medications/Allergies Allergies/Adverse Reactions: Allergies Allergy/AdvReac Type Severity Reaction Status Date / Time No Known Allergies Allergy Unverified 12/28/17 22:07 Medications: Current Medications Acetaminophen (Tylenol) 325 - 650 mg PO Q4H PRN PRN Last Admin: 12/29/17 19:36 Dose: 650 mg Al Hydrox/Mg Hydrox/Simethicone (Mylanta Liquid) 30 ml PO Q2H PRN PRN Atorvastatin Calcium (Lipitor) 10 mg PO HS LYLA Last Admin: 12/29/17 21:38 Dose: 10 mg Dimethicone/Zinc Oxide (Evan Protect Cream) 0 gm TP PRN PRN Divalproex Sodium (Depakote) 1,000 mg PO BID [facility] Last Admin: 12/30/17 09:03 Dose: 1,000 mg Docusate Sodium (Colace) 100 mg PO TID PRN PRN Fluticasone Propionate (Flonase) 1 gm NS BID PRN PRN Ceftriaxone Sodium/Dextrose (Rocephin) 1 gm in 50 mls @ 100 mls/hr IVPB Q24H [facility] Last Admin: 12/29/17 16:44 Dose: 100 mls/hr IV Miscellaneous Supplies () 1 each IV DIRECTED [facility] Lisinopril (Prinivil) 5 mg PO DAILY [facility] Magnesium Hydroxide (Milk Of Magnesia) 30 ml PO DAILY PRN PRN Metoprolol Succinate (Toprol Xl) 50 mg PO DAILY [facility] Last Admin: 12/30/17 09:04 Dose: Not Given Non-Formulary Medication (Metronidazole [Metrogel]) 1 natanael TP BID PRN PRN Non-Formulary Medication (Tacrolimus [Tacrolimus]) 1 - 2 gm TP DAILY PRN Phenazopyridine HCl (Pyridium) 200 mg PO TID [facility] Last Admin: 12/30/17 09:04 Dose: 200 mg Polyethylene Glycol (Miralax) 17 gm PO DAILY PRN PRN PRN Reason: Constipation Ropinirole HCl (Requip) 1 mg PO HS [facility] Last Admin: 12/29/17 21:39 Dose: 1 mg Sodium Chloride (Saline Flush 10 Ml Syringe) 0 ml IVP PRN PRN Last Admin: 12/29/17 08:05 Dose: 10 ml Tamsulosin HCl (Flomax) 0.8 mg PO DAILY [facility] Last Admin: 12/30/17 09:04 Dose: 0.8 mg Venlafaxine HCl (Effexor Xr) 150 mg PO DAILY [facility] Last Admin: 12/30/17 09:04 Dose: 150 mg Objective - Exam Vitals and I&O: Vital Signs Temp 36.3 C L 12/30/17 11:35 Pulse 60 12/30/17 11:35 Resp 17 12/30/17 11:35 BP 145/77 12/30/17 11:35 Pulse Ox 93 L 12/30/17 11:35 Intake & Output 12/29/17 12/30/17 12/30/17 23:59 11:59 23:59 Intake Total 490 240 Output Total 50 300 Balance 440 -300 240 Intake: Oral 490 240 Output: Urine 50 300 Other: Urine Color Light Mirtha [place] Urine Appearance Clear Urine Odor Normal None Comment pt had a small incontinent episoide due to meds urine was orange Voiding Methods Diaper Urinal General: Alert, Cooperative, No acute distress HEENT: Mucous membr. moist/pink Lungs: Clear to auscultation, Normal air movement Cardiovascular: Regular rate, Normal S1, Normal S2 Abdomen: Normal bowel sounds, Soft. denies: Tenderness, Masses Extremities: denies: Cyanosis, Edema, Tenderness/swelling Skin: denies: Rashes Neurological: Normal speech, Sensation intact Psych/Mental Status: Mental status NL (still memory issus, chronic), Mood NL - Results Results: Laboratory Results WBC 12.04 k/cumm (4.4-10.8) H 12/29/17 06:21 RBC 4.18 m/cumm (4.50-6.00) L 12/29/17 06:21 Hgb 14.2 g/dL (13.5-17.5) 12/29/17 06:21 Hct 41.8 % (40.0-50.0) 12/29/17 06:21 MCV 100.0 fL (80-95) H 12/29/17 06:21 MCH 34.0 pg (27.0-33.0) H 12/29/17 06:21 MCHC 34.0 g/dL (32.0-36.0) 12/29/17 06:21 RDW 12.8 % (11.8-14.1) 12/29/17 06:21 Plt Count 102 x1000/uL (130-400) L 12/29/17 06:21 MPV 9.6 fL (8.0-11.0) 12/29/17 06:21 Immature Gran % 0.2 12/29/17 06:21 Neutrophils % 60.5 12/29/17 06:21 Lymphocytes % 18.9 12/29/17 06:21 Monocytes % 20.3 12/29/17 06:21 Eosinophils % 0.0 12/29/17 06:21 Basophils % 0.1 12/29/17 06:21 Absolute Neutrophils 7.28 k/cumm (1.2-6.7) H 12/29/17 06:21 Absolute Lymphocytes 2.28 k/cumm (1.2-3.4) 12/29/17 06:21 Absolute Monocytes 2.44 k/cumm (0.11-0.7) H 12/29/17 06:21 Absolute Eosinophils 0.00 k/cumm (0.0-0.7) 12/29/17 06:21 Absolute Basophils 0.01 k/cumm (0.0-0.2) 12/29/17 06:21 Differential Comment Diff reviewed 12/28/17 16:30 RBC Morphology Normal 12/28/17 16:30 PT 10.4 sec (9.3-10.8) 12/28/17 21:56 INR 1.1 (1.0-3.5) 12/28/17 21:56 APTT 23.7 sec (21.0-31.4) 12/28/17 21:56 Sodium 139 mmol/L (136-145) 12/28/17 16:30 Potassium 3.8 mmol/L (3.5-5.1) 12/28/17 16:30 Chloride 105 mmol/L (98-107) 12/28/17 16:30 Carbon Dioxide 28.9 mmol/L (21.0-32.0) 12/28/17 16:30 Anion Gap 5.1 mmol/L (3-11) 12/28/17 16:30 BUN 16 mg/dL (7-18) 12/28/17 16:30 Creatinine 1.18 mg/dL (0.70-1.30) 12/28/17 16:30 Estimated GFR/1.73 m2 59.70 (mL/min/1.73m2) 12/28/17 16:30 Glucose 82 mg/dL (70-100) 12/28/17 16:30 Calcium 8.3 mg/dL (8.5-10.1) L 12/28/17 16:30 Magnesium 1.9 mg/dL (1.8-2.4) 12/28/17 16:30 Total Bilirubin 1.1 mg/dL (0.2-1.0) H 12/28/17 16:30 AST 15 U/L (15-37) 12/28/17 16:30 ALT 20 U/L (12-78) 12/28/17 16:30 Alkaline Phosphatase 49 U/L (46-116) 12/28/17 16:30 Troponin I < 0.02 ng/mL (0.00-0.06) 12/28/17 16:30 Total Protein 6.6 g/dL (6.4-8.2) 12/28/17 16:30 Albumin 3.2 g/dL (3.4-5.0) L 12/28/17 16:30 Urine Color Yellow (Yellow) 12/28/17 16:30 Urine Clarity Sl cloudy 12/28/17 16:30 Urine pH 5.5 (5-8) 12/28/17 16:30 Ur Specific [place] >= 1.030 (1.005-1.025) H 12/28/17 16:30 Urine Protein 100 mg/dL (Negative) H 12/28/17 16:30 Urine Ketones Trace mg/dL (Negative) H 12/28/17 16:30 Urine Blood Large (Negative) H 12/28/17 16:30 Urine Nitrite Positive (Negative) H 12/28/17 16:30 Urine Bilirubin Negative (Negative) 12/28/17 16:30 Urine Urobilinogen 1.0 EU/dL (Up TO 0.2) H 12/28/17 16:30 Ur Leukocyte Esterase Small (Negative) H 12/28/17 16:30 Urine RBC Not Applicable 12/28/17 16:30 Urine WBC >50 HPF (0-5) 12/28/17 16:30 Ur Epithelial Cells Not Applicable 12/28/17 16:30 Urine Crystals Not Applicable 12/28/17 16:30 Urine Bacteria Not Applicable 12/28/17 16:30 Urine Mucus Moderate (Negative) 12/28/17 16:30 Ur Culture Indicated? Yes 12/28/17 16:30 Urine Glucose Negative mg/dL (Negative) 12/28/17 16:30 Total Valproic Acid 77.2 ug/mL (50-100) 12/29/17 19:10
[2017-12-30] MEDS: Normal Saline Flush 10 ML SYR IVP (14:56)
--- NOTE | 2017-12-30 17:36 | NCONE_ITS ---
DATE OF CONSULTATION: December 30, 2017 ASSESSMENT AND PLAN: Mr. Medina is a 77-year-old, right-handed man with a long history of mild cognitive impairment and more recent history of recurrent subdural hematomas and focal epilepsy. He was readmitted for generalized weakness and found to have an acute/subacute right subdural hematoma which is very small, as well as a urinary tract infection. Clinically he has had significant improvement. His current exam is at baseline compared to his previous examinations. I discussed with the family that I do not think that that subdural is likely causing any symptoms. I agree with the primary team that likely his clinical symptoms are secondary to the urinary tract infection. I suspect that the subdural hematoma will be medically managed as recommended by Neurosurgery. I agree with holding aspirin at this time. Otherwise, his seizures remain under good control with Depakote 1000 mg b.i.d. He does have tremors which are persistent and may be secondary to Depakote, which we can change outpatient if needed. No further recommendations at this time. He should follow up as scheduled in Neurology Clinic in February. Thank you for this consultation. Please call with any questions or concerns. REFERRING PHYSICIAN: Keon Mendoza M.D. REASON FOR CONSULTATION: I was asked to see Mr. Medina in neurological consultation by Dr. Mendoza for subdural hematoma. HISTORY OF PRESENT ILLNESS: Mr. Medina is a 77-year-old, right-handed man whom I am very familiar with as he sees me in clinic as an outpatient. He has a long history of poorly-defined mild cognitive impairment which worsened in 2017 in the setting of multiple TBIs including a left subdural hematoma in June 2017, which was treated with medical management. He had further acute worsening earlier this summer and was found to have a recurrent right subdural hematoma for which he underwent surgical evacuation at [facility] in November. Since that admission, he has made slow but modest improvement both cognitively and physically, though continues to remain significantly impaired. On Thursday morning, 12/28/17, he was significantly weaker and his was unable to get him out of bed. She did not recall any prior head injuries. He was brought to the Emergency Room where he was found to have a urinary tract infection. He also underwent a CT head which I was able to view and showed a new small right frontoparietal acute/subacute subdural hematoma. He was admitted for further monitoring. He had a repeat CT head performed on 12/29/17 which I was able to review and showed the subdural was stable. Clinically, he has been improving both cognitively and physically, which is likely secondary to treatment of his urinary tract infection. Otherwise, since his subdural in June 2017, he has had several episodes that seem to be consistent with seizure. He has a long history of Depakote use for mood. That has been slowly increased to 1000 mg b.i.d. on which he has not had any further seizures. However, he has developed parkinsonian features including intermittent arm resting tremors and jaw tremors, but previous attempts to wean or reduce Depakote have resulted in increased anxiety, restlessness, and paradoxically, his tremors. PAST MEDICAL HISTORY: 1. Hypertension. 2. Hyperlipidemia. 3. ADHD. 4. Depression and anxiety. 5. Mild cognitive impairment. 6. Recurrent subdural hemorrhages in 2018. 7. Enlarged prostate. 8. Pediatric seizures at age 2 or 3 that self-resolved. 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 10. History of alcohol abuse. 11. Vitamin B12 deficiency. 12. Obstructive sleep apnea. 13. Restless leg syndrome. 14. Rosacea. PAST SURGICAL HISTORY: 1. Cholecystectomy. 2. Right hammertoe repair, 2008. 3. Pilonidal cyst resection. 4. TURP. 5. Right hand tendon repair, September 2017. 6. Right subdural hematoma evacuation via portillo hole, October 2017. FAMILY HISTORY: Mother with heart disease, hypertension, hyperlipidemia, and diabetes. Father with lung disease. No family history of seizures. SOCIAL HISTORY: He is with one grown son. He is a retired teacher. He quit smoking. He has a history of alcohol abuse prior to May 2017, but has since remained sober. No illicit drug use. PHYSICAL EXAM: VITAL SIGNS: T-max 38.5. Pulse 56-91. Blood pressure 145-170/77-81. Respiratory rate 16-18. Saturation 93-96% on room air. GENERAL: The patient is of apparent stated age, in no apparent distress. HEAD/FACE: No facial or cranial nerve abnormalities. NECK: Supple. No meningismus. No occipital tenderness. CARDIOVASCULAR: Regular rate and rhythm. RESPIRATORY: Clear to auscultation bilaterally. ABDOMEN: Soft, nontender, nondistended. Positive bowel sounds. EXTREMITIES: No edema. No clubbing or cyanosis. No bony deformity. NEUROLOGIC EXAM: Language - fluency, naming, repetition, and comprehension generally intact. Mental status - awake, alert, oriented to self and place, loosely with time. No significant confusion with complex commands today. Speech - no dysarthria. Cranial nerves: Cranial nerve II - visual driver intact. Cranial nerves III, IV, and - extraocular movements intact, no nystagmus, pupils symmetric and reactive to light. Cranial nerve V - face sensation intact to light touch. Cranial nerve VII - no facial asymmetry noted. Cranial nerve VIII - hearing intact bilaterally. Cranial nerves IX and X - palate rises symmetrically. Cranial nerve XI - trapezius 5/5 bilaterally. Cranial nerve XII - protrudes tongue symmetrically. Sensory - intact to light touch throughout. Motor - bulk and tone intact. Fine motor movements intact bilaterally. No pronator drift. Strength 5/5 throughout. No resting tremor of the arms and no significant dysmetria. He had a constant jaw tremor. He had no cogwheel rigidity on today's exam. Mild bradykinesia throughout. Reflexes - 2+ in the upper extremities and hyporeflexive in the lower extremities. Toes were neutral bilaterally. Coordination - no ataxia. No significant dysmetria. Gait - deferred.
[2017-12-30] MEDS: rOPINIRole 0.5 MG TAB 1 MG PO (21:45)
[2017-12-30] MEDS: Atorvastatin 10 MG TAB PO (21:45)
[2017-12-31 03:00] VITALS: BP 130/93; PULSE 86; RESP 20; TEMP 36.8; O2SAT 93
[2017-12-31 07:05] LABS: Abs Immature Grans 0.03 k/cumm (0.0-0.09); Absolute Basophil Count 0.01 k/cumm (0.0-0.2); Absolute Eosinophil Count 0.04 k/cumm (0.0-0.7); Absolute Lymphocyte Count 1.26 k/cumm (1.2-3.4); Absolute Monocyte Count 1.28 k/cumm (0.11-0.7); Absolute Neutrophil Count 2.52 k/cumm (1.2-6.7); Basophils % 0.2; Eosinophils % 0.8; HCT 40.9 % (40.0-50.0); Immature Grans % 0.6; Lymphocytes % 24.5; Mean Corp. HGB Concentration 34.2 g/dL (32.0-36.0); Mean Corpuscular Hemoglobin 33.4 pg (27.0-33.0); Mean Corpuscular Volume 97.6 fL (80-95); Mean Platelet Volume 9.8 fL (8.0-11.0); Monocytes % 24.9; Platelet Count 105 x1000/uL (130-400); RBC 4.19 m/cumm (4.50-6.00); RBC Distribution Width 12.8 % (11.8-14.1); White Blood Cell Count 5.14 k/cumm (4.4-10.8)
[2017-12-31 07:23] LABS: BUN 15 mg/dL (7-18); CREATININE 0.92 mg/dL (0.70-1.30); Calcium 8.2 mg/dL (8.5-10.1); Chloride 103 mmol/L (98-107); Glucose 97 mg/dL (70-100); Potassium 3.5 mmol/L (3.5-5.1); Sodium 136 mmol/L (136-145)
[2017-12-31 07:45] VITALS: BP 144/85; PULSE 77; RESP 19; TEMP 36; O2SAT 93
[2017-12-31] MEDS: Venlafaxine 150 MG CAPCR PO (08:33)
[2017-12-31] MEDS: Phenazopyridine 200 MG TAB PO ×2 (08:34→13:40)
[2017-12-31] MEDS: Tamsulosin 0.4 MG CAPCR 0.8 MG PO (08:34)
[2017-12-31] MEDS: Lisinopril 5 MG TAB PO (08:34)
[2017-12-31] MEDS: Divalproex 500 MG TABEC 1000 MG PO (08:34)
[2017-12-31] MEDS: Metoprolol CR 50 MG TABCR PO (08:34)
--- NOTE | 2017-12-31 10:41 | INPTTR_ITS ---
PHYSICAL THERAPY PROGRESS NOTE Date: 12/31/17 PRECAUTIONS: Fall and Seizure precautions SUBJECTIVE: Pt sitting in chair, agreeable to therapy session. States he feels good this morning, in room observing session. OBJECTIVE: PAIN: no c/o pain BED MOBILITY/TRANSFERS: Sit-stand: SBA with FWW Stand-sit: SBA GAIT: SBA with FWW 200ft, steady step through gait pattern with use of walker , improved negotiation around objects in hallway. Pt returned to room and up in recliner chair with legs elevated after session completed. Fall alarm activated. THEREX Standing in walker: heel raises, hip flexion, hip abduction x 10 reps bilaterally BALANCE: Static sitting normal Dynamic Sitting normal Static Standing fair Dynamic Standing fair ASSESSMENT: Pt with improved strength and mobility this morning, progressed to standing strengthening exercises, increased gait distance with decreased cues needed for safety and negotiation. PLAN: Progress to stair training Progress strengthening TREATMENT CODES/TIME: 30min TAx1 TP x1 9:15 Yolanda Galvan PT
[2017-12-31] MEDS: Normal Saline Flush 10 ML SYR IVP (11:15)
[2017-12-31 11:30] VITALS: BP 155/75; PULSE 90; RESP 17; TEMP 36.4; O2SAT 93
--- NOTE | 2017-12-31 13:19 | PDOC.CMPRO ---
Date of Service: 12/31/17 Time of Service: 13:19 Care Management Progress Note Pt presented at interdisciplinary rounds. Fabian is sitting in his recliner, Melani reports that she was able to purchase incontinent mattress pads and other supplies for use when Fabian returns home. She reports that she is unsure where to purchase bed rails for the bed she recently purchased for her . Melani seems a little more comfortable with the idea of Fabian returning home than she did yesterday. Melani has several questions related to Fabian's UTI and how to prevent it in the future. CM reviewed how antibiotics are used to treat UTI's and how to monitor Fabian. Educated the importance of completing the antibiotics and notifying primary care if symptoms return or that he becomes more confused then baseline of incontinence. Fabian continues to receive IV antibiotics and is being monitored on telemetry. PT reports that Fabian did well with PT and continue to work with him. Fabian will continue with home health services for PT, and speech. A: 77 year old male admitted with possible acute subdural hematoma, UTI and weakness. P: Fabian will discharge home when medically ready per MD. Anticipate Pt will continue with PT and speech 2/week with no increase in services. Fabian will transport via private vehicle with , Melani. CM will continue to provide support to patient, family and care team regarding discharge planning and disposition.
--- NOTE | 2017-12-31 14:20 | INPTTR_ITS ---
PHYSICAL THERAPY PROGRESS NOTE Date: 12/31/17 PRECAUTIONS: Fall and Seizure precautions SUBJECTIVE: Pt sitting in chair, agreeable to therapy session. present in room. OBJECTIVE: PAIN: no c/o pain BED MOBILITY/TRANSFERS: Sit-stand: SBA with FWW Stand-sit: SBA GAIT: SBA with FWW 200ft, steady step through gait pattern with use of walker BALANCE: Static sitting normal Dynamic Sitting normal Static Standing fair Dynamic Standing fair ASSESSMENT: Pt mobilizing well with transfers and gait with FWW, feels his strength has improved since admission. Pt states he has a 4WW at home, he is safer with use of FWW for mobility at this time. Pt states he can stay on first level of home initially, would like to progress to being able to complete 15 steps with railing to be able to get to upstairs bedrooms. PLAN: Progress to stair training Progress strengthening TREATMENT CODES/TIME: 23min [id number] Yolanda Galvan PT
--- NOTE | 2017-12-31 15:00 | DISCHARGE ---
Discharge - Discharge Orders - Discharge Plan Disposition: HOME W/HOME HEALTH SERVICE Condition: Improving Diet:: As Tolerated Equipment/Supplies:: No Equipment Needed (has walker) Activity:: Activity as Tolerated (per Physical Therapy recommendations) - Instructions Micromedex Instructions: Subdural Hematoma (DC), Urinary Tract Infection in Men (DC) Additional Instructions: Get antibiotics and start them tomorrow to finish the treatment of the urinary tract infection. The pyridium has stopped so the urine should return to normal color. Follow up with Dr. Dick as planned
[2017-12-31 16:00] VITALS: BP 117/72; PULSE 88; RESP 18; TEMP 36.4; O2SAT 94
--- NOTE | 2017-12-31 16:15 | PDOC.CMDIS ---
Date of Service: 12/31/17 Time of Service: 16:15 LACE Index Scoring Tool - Questions: Length of Stay (in days): 4 - 6 Acuity (Admit via E.D.?): Yes Comorbidities: Dementia E.D. Visits: 3 - Answers: Total Score: 13 Risk of Readmission: High Risk Care Management Discharge Reason for Hospitalization: Possible acute subdural hematoma, UTI, weakness. Discharge Plan: Fabian will return home with his spouse Melani today. CM reviewed follow up plan and contacted Home health services to notifiy of patients discharge. Fabian will continue on oral antibiotics and he was started on medications for blood pressure. Spouse will be provided with a hard copy of script to flower picker at pharmacy. Fabian feels that he is ready to return home, PT has reported that he is ready to continue his therapy at home. Spouse to transfer by private car. Patient/Family Education Needs: Discharge education, limitations and follow up plan of care including when to contact primary care and signs and symptoms of UTI. Medication and importance of completing antibiotics even when symptoms are not present. Services Needed at Discharge: Home Health Care Services, Physical Therapy, Speech Therapy
--- NOTE | 2017-12-31 16:20 | CMDISCH_ITS ---
Date of Service: 12/31/17 Time of Service: 16:15 LACE Index Scoring Tool - Questions: Length of Stay (in days): 4 - 6 Acuity (Admit via E.D.?): Yes Comorbidities: Dementia E.D. Visits: 3 - Answers: Total Score: 13 Risk of Readmission: High Risk Care Management Discharge Reason for Hospitalization: Possible acute subdural hematoma, UTI, weakness. Discharge Plan: Fabian will return home with his spouse Melani today. CM reviewed follow up plan and contacted Home health services to notifiy of patients discharge. Fabian will continue on oral antibiotics and he was started on medications for blood pressure. Spouse will be provided with a hard copy of script to tack picker at pharmacy. Fabian feels that he is ready to return home, PT has reported that he is ready to continue his therapy at home. Spouse to transfer by private car. Patient/Family Education Needs: Discharge education, limitations and follow up plan of care including when to contact primary care and signs and symptoms of UTI. Medication and importance of completing antibiotics even when symptoms are not present. Services Needed at Discharge: Home Health Care Services, Physical Therapy, Speech Therapy
[2017-12-31 16:30] VITALS: BP 117/72; PULSE 88; RESP 18; TEMP 36.4; O2SAT 94
--- NOTE | 2018-01-01 08:44 | INDS_ITS ---
PHYSICAL THERAPY INPATIENT DISCHARGE NOTE Date: 01/01/18 for 12/31/17 Dates of Service: 12/29/17-12/31/17 SUBJECTIVE: NT OBJECTIVE 12/29/17-12/31/17 BED MOBILITY/TRANSFERS: Supine-sit: supervision Sit-stand: SBA with FWW Stand-sit: SBA Sit-supine: supervision GAIT: SBA with FWW 200ft BALANCE: Static sitting normal Dynamic Sitting normal Static Standing fair Dynamic Standing fair ASSESSMENT: Pt is a 77yr old male admitted with chronic intracranial subdural hematoma, progressive weakness x 3 weeks and fall in home setting in setting of mild cognitive impairment, attention deficit disorder, traumatic brain injury, subdural hematoma, s/p craniotomy right frontal lobe, seizures, 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 Patient was seen for 5 PT visits. Progressed from SBA gait with FWW 70ftx2 to SBA gait with FWW 200ft, at supervision level for bed transfers and SBA level for standing transfers. Pt is discharged to home setting, home PT recommended for continued strengthening and gait training. GOALS Goals x1 week 1. Supine-sit: independent 2. Sit-Supine independent 3. Sit-Stand supervision 4. Stand-sit supervision 5. Bed-chair SBA no device 6. Chair-bed SBA no device 7. Gait supervision with FWW [id number] 8. Stairs: up/down 15 steps with railing, SBA Pt did not meet therapy goals prior to discharge, home PT recommended DISCHARGE RECOMMENDATIONS Home with , home PT G Codes in the area mobility of walking and moving around:projected status GP [id number] Discharge status (if discharging) GP [id number] Yolanda Galvan PT
--- NOTE | 2018-01-01 17:20 | DSE_ITS ---
DATE OF ADMISSION: 12/28/2017 DATE OF DISCHARGE: 12/31/2017 PRIMARY CARE PROVIDER: Alvina Avila MD PRESENTATION ON ADMISSION: This is a 77 year old man with a history of multiple subdural hematomas as well as traumatic brain in jury and some cognitive impairment and a seizure disorder related to head trauma in the past, who pre sented with lower extremity weakness and incontinence. He was found to have small new subdural hemat timothy and a urinary tract infection. HOSPITAL COURSE: Neurology: As above, CAT scan on admission showed small new subdural hematoma. The study was reviewed with [facility], who do not feel like it was big enough for neurosurgical intervention. They recommende d repeating the CAT scan the next day, and this was done demonstrating no change from the initial CT scan. The patient recovered during the days of his hospitalization and was working with Informatics Analyst apy and back close to his previous baseline prior to discharge. The case was reviewed with Dr. Alina Tolbert. A consult was initially ordered, but the patient was improving by the time she arrived so the consult was cancelled as it was felt that there was no new intervention warranted at that i nt. Patient did not have seizure or other abnormal movements. Urologic: The patient did have new urinary frequency and incontinence. Urinary tract infection was suspected ba sed on urinalysis, and the culture did grow E. coli. He was treated with Ceftriaxone. This was briefl y changed to Ciprofloxacin, but then changed back to Ceftriaxone given the side effect profile of Cip rofloxacin. After sensitivities were reviewed, the patient was discharged on amoxicillin orally to co mplete a week course of therapy. His incontinence and frequency did improve prior to discharge, altho ugh not completely resolved. A rectal exam was performed and it was not consistent with prostatitis or loss of tone. Cardiovascular: Patient's blood pressures were slightly high during most of his admission. It was noted that the phillip ent was previously on high dose of Lisinopril, and this was stopped by his primary care provider. We did start a low dose of 5mg of Lisinopril and his blood pressure was better at the day of discharge w ith systolics from 117 to 155 over 72 to 93 diastolic. He had a normal creatinine of 0.92 and a potas sium of 3.5 on the day of discharge. DISCHARGE DIAGNOSES: 1. Subdural hematoma, non-operative, recurrent. 2. Urinary tract infection OTHER DIAGNOSES: 1. History of traumatic brain injury 2. 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 Hypertension DISCHARGE MEDICATIONS: 1. Amoxicillin, 875mg p.o. b.i.d. for five more days 2. Atorvastatin, 10mg p.o. daily 3. Vitamin D, 5000u p.o. daily 4. Vitamin B-12, 1000mcg I.M. monthly per primary care provider 5. Divalproex sodium, 1000mg p.o. b.i.d. 6. Flonase nasal spray b.i.d. 7. Lisinopril, 5mg p.o. daily 8. Metoprolol succinate, 50mg p.o. daily 9. Metronidazole gel topically b.i.d. 10. Ropinirole, 1mg 11. Tamsulosin, 0.8mg p.o. q 24 hours 12. Venlafaxine, 150mg ER daily 13. Tacrolimus ointment, 1-2g topically daily DISCHARGE PLAN: Patient will go home with Home Health and Physical Therapy as previously prescribed due to his gait i nstability related to previous head trauma and bleeds. He will follow-up in the next week or two with his primary care provider, Dr. Avila. He'll stop his aspirin to limit the risk of recurrent bleeds. He will finish a course of amoxicillin for his urinary tract infection. His was concerned with a test of cure. I'll defer this to his primary care physician, as well as the need for follow-up with Urology. CONDITION ON DISCHARGE: Guarded Greater than 40 minutes spent on this discharge. JR/dimpleg cc: MD Elizabeth Tinoco MD
== END 2017-12-31 17:03 | disposition home health service (06) | DRG 65 ==
PROVIDERS: Admitting Provider Internal Medicine; Emergency Provider Physician Assistant; PCP Family Medicine; Visit Provider Family Medicine
DX: I62.01 Nontraumatic acute subdural hemorrhage (principal); R56.1 Post traumatic seizures; N39.0 Urinary tract infection, site not specified; I62.02 Nontraumatic subacute subdural hemorrhage; M62.81 Muscle weakness (generalized); G31.84 Mild cognitive impairment of uncertain or unknown etiology; R32 Unspecified urinary incontinence; I10 Essential (primary) hypertension; E78.5 Hyperlipidemia, unspecified; F41.8 Other specified anxiety disorders; N40.0 Benign prostatic hyperplasia without lower urinary tract symptoms; G47.33 Obstructive sleep apnea (adult) (pediatric); G25.81 Restless legs syndrome; R26.81 Unsteadiness on feet; B96.20 Unspecified Escherichia coli [E. coli] as the cause of diseases classified elsewhere
CPT/HCPCS: 36415 ×3; 70450 ×2; 71046; 72125; 80048; 80053; 80164; 81003; 81015; 83735; 84484; 85025 ×3; 85610; 85730; 87077; 87086; 87186; 87324; 93010; 96365; 97163; 99285; J0696 ×3; 93005; 97110; 97530; 99215; 99220; G0378; G8978

== ENCOUNTER → 2018-02-22 08:51 | Outpatient (BNVA) | payer MEDICARE, OTHER, SELFPAY | PROVIDERS: PCP Family Medicine; Visit Provider Psychiatry & Neurology Neurology | DX: S06.5X0D 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, subsequent encounter (principal); X58.XXXD Exposure to other specified factors, subsequent encounter; R41.3 Other amnesia; G40.109 Localization-related (focal) (partial) symptomatic epilepsy and epileptic syndromes with simple partial seizures, not intractable, without status epilepticus; F03.90 Unspecified dementia, unspecified severity, without behavioral disturbance, psychotic disturbance, mood disturbance, and anxiety; I10 Essential (primary) hypertension | CPT/HCPCS: 99214 ==

== ENCOUNTER 2018-03-16 10:27 | Emergency (ER) | payer MEDICARE, OTHER, SELFPAY ==
--- NOTE | 2018-03-16 10:44 | DI.CT_ITS ---
SYMPTOMS/DIAGNOSIS: SYNCOPE CT BRAIN, NONCONTRAST: Comparison examinations dating back to 07/04/17 were reviewed. Most recent examination is 12/29/17. There is cerebral atrophy consistent with the patient' s age. Areas of decreased attenuation in the white matter are most consistent with small vessel ischemic disease. No acute intracranial infarct, midline shift or mass effect is identified. No intraparenchymal hemorrhage is seen. There are again seen bilateral chronic subdural hygromas. There is again seen a thin extraaxial linear density along the right parietal bone convexity. This area continues to show decrease in size compared to the examination from . This may be postsurgical. The patient has a portillo hole in the right parietal bone. There is opacification of a few ethmoid air cells. The remaining visualized paranasal sinuses are clear. The mastoid air cells are well pneumatized. No acute fracture is identified. IMPRESSION: No definite acute intracranial process. Please see the above discussion for complete details. The findings were discussed with the Emergency Department on the date of the examination. CTA OF THE CHEST: CT scan of the chest was performed according to the pulmonary embolus protocol. There is no evidence of a pulmonary embolus. There is atherosclerosis of the thoracic aorta, but no aneurysmal dilatation or dissection is present. The heart size is within normal limits. No significant pericardial effusion is seen. No evidence of right ventricular dysfunction is present. Coronary artery calcifications are seen. No thoracic adenopathy is appreciated. No pleural effusion or pneumothorax is identified. The lungs show mild atelectatic changes. No focal consolidating infiltrates are seen. The tracheobronchial tree is unremarkable. Degenerative changes are seen in the spine. IMPRESSION: No acute abnormality. No evidence of an acute pulmonary embolus, thoracic aortic dissection or aneurysm. The findings were discussed with the Emergency Department on the date of the examination.
--- NOTE | 2018-03-16 10:51 | ED.GENADUL_ITS ---
Addendum entered and electronically signed by Fabian Flores M.D. 03/16/18 14: 37: 2nd ekg shows aflutter, no other significant changes from 1st ekg Original Note: Discharge Plan Disposition Patient Disposition: HOME Condition: Stable Discharge Details Chief Complaint: Seizure Clinical Impression: Atrial flutter Primary Care Provider: Alvina Avila ED Provider: Everardo Vences Home Meds and New Rx's Prescriptions: Continue lisinopril 5 mg tablet 5 mg PO DAILY Qty: 90 RF: 4 atorvastatin 10 mg tablet 10 mg PO DAILY RF: 0 cyanocobalamin (vitamin B-12) 1,000 mcg/mL solution 1,000 mcg IM .COMPLEX RF: 0 divalproex 500 mg tablet,delayed release (DR/EC) 1,000 mg PO BID RF: 0 fluticasone [Allergy Relief (fluticasone)] 50 mcg/actuation spray,suspension 2 spray RACHEL BID PRNRF: 0 metronidazole [Metrogel] 1 % gel with pump 1 applic TP BID PRNRF: 0 ropinirole 1 mg tablet 1 mg PO HS RF: 0 tacrolimus 0.1 % ointment 1 applic TP DAILY PRNRF: 0 venlafaxine 150 mg capsule,extended release 24hr 150 mg PO DAILY RF: 0 syringe with cannula,disposabl [BD Blunt Plastic Cannula] 1 EACH syringe 1 ea Miscellaneous Qweek Qty: 12 RF: 12 cholestyramine-aspartame [Cholestyramine Light] 4 gram powder 4 gm PO BID Qty: 239.4 RF: 4 cholecalciferol (vitamin D3) 5,000 UNIT tablet 5,000 unit PO RF: 0 Discharge Instructions Instructions: Atrial Flutter (ED) Additional Instructions: Feel free to return to the emergency department for any new or worsening symptoms or any further concerns he may have. Otherwise take your medication as prescribed and follow-up with your primary care provider for reassessment as needed Referrals: Alvina Avila MD, [place] [Primary Care Provider] - (Call the office for arrangement of follow-up ) Medical Decision Making <Everardo Vences NP - Last Filed: 03/16/18 17:10> Patient presenting to the emergency department for chief complaint of seizure. Patient states approximately 20 minutes prior to arrival he was at physical therapy appointment and felt weak and slumped over. does state that patient had normal speech during this activity which is abnormal. states that patient does have seizures with the last one being approximately 3 months ago but typically he is more tired after the event and has issues with speech during the event. Patient denies any pain or discomfort at this time but states generalized weakness and malaise. Physical exam is unremarkable except for tachycardia otherwise there are no focal neurological deficits, patient is not postictal, and no other significant findings noted. Concern for possible neurological change given patient's history of TBI, seizures, and previous intracranial bleed so plan to do CT imaging. Otherwise given tachycardia plan to perform EKG and blood work including troponin for concern of report of syncope. Also given patient's tachycardia and syncopal episode plan to perform CT imaging of the chest to rule out PE. Review of EKG with Dr. Flores shows concern of A. fib versus a flutter, more than likely A flutter, with rapid rate. Patient's rate on monitor does not exceed 110 and blood pressure is appropriate so I do not feel that any further rate control is needed at this time. We will continue to monitor. Reviewed patient previous records and showed no signs of a flutter in the past. Review of initial labs shows negative troponin, and otherwise nondiagnostic labs. Review of head CT imaging and chest CT imaging shows no acute findings on the chest and postsurgical changes on the head. Patient reassessed and remains asymptomatic denies any pain or discomfort and rate is now in the 90s with occasional elevation to the low 100s. Plan on doing delta troponin to rule out ischemic cardiac event causing syncope and EKG changes. Review of second troponin is also negative and patient reassessed and now has heart rate mostly ranging in the 80s-90s. Repeat EKG was performed and continues to show a flutter. patient remains asymptomatic. Did discuss with patient and family risk versus benefit of anticoagulation which at this time I did not recommend given patient's previous intracranial bleeds and history of frequent falls. Family stated clear understanding of risk versus benefit and also was agreeable to not being placed on anticoagulation but I did inform them that I would also speak with primary care provider in regards to patient's follow-up plan. Spoke with Dr. Avila about anticoagulation and further testing. After thorough discussion with her in regards to patient's care she agreed with recommendation to not anticoagulate patient as given patient's history risks do not outweigh benefits. I also did discuss with her potential further outpatient cardiac monitoring and she recommended against this at this time given patient's ongoing history, dementia, and TBI she does not feel that patient would be a appropriate candidate for defibrillator or that patient would want that in that case. Discussed all this with patient and family and they were also in agreement with this plan. Informed patient to take his medication as prescribed and to follow-up with primary care provider for reassessment. Informed patient and family they may return at any point to the emergency department for any new or worrisome concerns. Lab Data Lab results reviewed: Yes I reviewed the patient's lab results. <Fabian Flores MD - Last Filed: 03/16/18 14:37> ECG Data Attestation: I personally reviewed and interpreted this ECG (s) as follows: Prior ECG tracings: not available for review Interpretation: atrial flutter, rate of 101, normal axis, no acute ischemic changes HPI <Everardo Vences NP - Last Filed: 03/16/18 17:10> General Mode of arrival: wheelchair . Date/Time Provider Initiated Documentation: 03/16/18 10:27 . Limitations to Documentation: no limitations . Information obtained by: patient, family and RN notes reviewed . History of Present Illness Patient started experiencing this minute(s) (20) and it has been now resolved. No relieving factors improve symptom(s), Patient notes no other symptoms.. Patient did receive the following treatments prior to arrival, none Related Data Home Medications Medication Instructions Recorded Confirmed syringe with cannula,disposabl [BD #12 ndl 11/13/16 03/08/18 Blunt Plastic Cannula] cholecalciferol (vitamin D3) 5,000 unit PO 12/29/17 03/08/18 atorvastatin 10 mg tablet 10 mg PO DAILY 01/11/18 03/08/18 cyanocobalamin (vit B-12) 1,000 1,000 mcg IM .COMPLEX 01/11/18 03/08/18 mcg/mL injection solution divalproex 500 mg tablet,delayed 1,000 mg PO BID tab 01/11/18 03/08/18 release fluticasone 50 mcg/actuation nasal 2 spray RACHEL BID PRN gm 01/11/18 03/08/18 spray,suspension metronidazole 1 % topical gel with 1 applic TP BID PRN gm 01/11/18 03/08/18 pump ropinirole 1 mg tablet 1 mg PO HS tab 01/11/18 03/08/18 tacrolimus 0.1 % topical ointment 1 applic TP DAILY PRN gm 01/11/18 03/08/18 venlafaxine ER 150 mg 150 mg PO DAILY 01/11/18 03/08/18 capsule,extended release 24 hr lisinopril 5 mg tablet 5 mg PO DAILY #90 tab 01/18/18 03/08/18 cholestyramine-aspartame 4 gram 4 gm PO BID #239.4 gm 02/04/18 03/08/18 oral powder Previous Rx's Medication Instructions Recorded lisinopril 5 mg tablet 5 mg PO DAILY #90 tab 01/18/18 cholestyramine-aspartame 4 gram 4 gm PO BID #239.4 gm 02/04/18 oral powder Allergies Allergy/AdvReac Type Severity Reaction Status Date / Time No Known Allergies Allergy Unverified 03/08/18 10:04 Review of Systems <Everardo Vences NP - Last Filed: 03/16/18 17:10> Constitutional Denies body ache(s), Denies chills, Denies fever(s), Denies headache(s) and Reports malaise ENT Denies headache(s) Cardiovascular Denies chest pain, Reports syncope and Reports dyspnea Respiratory Denies chest congestion, Denies cough and Reports dyspnea Gastrointestinal Denies abdominal pain, Denies nausea and Denies vomiting Musculoskeletal Denies abnormal gait Integumentary/Breasts Denies rash Neurologic Reports as per HPI, Denies abnormal gait, Denies confusion, Reports syncope, Denies headache(s), Denies lack of coordination, Denies focal weakness, Reports seizure-like activity and Denies sensory deficit Psychiatric Denies confusion Exam <Everardo Vences NP - Last Filed: 03/16/18 17:10> Const General: cooperative and no acute distress Nutritional Appearance: average body habitus Orientation: alert, awake and oriented x3 Limitations: mental status not altered HENMT Head: abrasion left frontal Ears: hearing grossly normal bilaterally, external ears normal and TM's normal bilaterally General nose exam: external nose normal, nares normal and no epistaxis Mouth: oral mucosae normal and moist mucous membranes Throat: posterior oropharynx normal, tonsils normal and uvula midline Eyes Visual Burton: normal visual burton by confrontation Alignment and Position: alignment normal Periorbital: periorbital findings normal Eyelids: eyelids normal Sclera: sclerae normal Cornea: corneas normal Pupils: PERRL EOM: EOM intact bilaterally Neck Neck: normal visual inspection, full ROM, no lymphadenopathy and no meningeal signs Resp Effort & Inspection: normal respiratory effort and able to speak in complete sentences Auscultation: clear to auscultation bilaterally Cardio Rate: regular rate Rhythm: regular rhythm Heart Sounds: S1 normal and S2 normal Neuro General: alert, awake, oriented x3, gait normal, tone normal, moves all extremities, CN's II-XI intact bilaterally and not confused Cognition: normal cognition Speech: speech normal Motor: muscle tone normal throughout, strength 5/5 throughout, no pronator drift and no movement abnormalities noted Sensory Exam: no sensory deficits noted
[2018-03-16 11:00] VITALS: BP 115/79; PULSE 102; RESP 18; TEMP 37.1; O2SAT 95
--- NOTE | 2018-03-16 11:00 | NUR.NOTE ---
Assumed care of patient at this time. Another nurse continues to document under my name. IT has been notified of this ongoing issue. Nursing Note:
[2018-03-16 11:10] LABS: Abs Immature Grans 0.02 k/cumm (0.0-0.09); Absolute Basophil Count 0.01 k/cumm (0.0-0.2); Absolute Eosinophil Count 0.04 k/cumm (0.0-0.7); Absolute Neutrophil Count 2.07 k/cumm (1.2-6.7); Basophils % 0.2; Eosinophils % 0.8; HCT 40.8 % (40.0-50.0); Immature Grans % 0.4; Lymphocytes % 35.1; Mean Corp. HGB Concentration 34.3 g/dL (32.0-36.0); Mean Corpuscular Hemoglobin 33.9 pg (27.0-33.0); Mean Corpuscular Volume 98.8 fL (80-95); Mean Platelet Volume 9.4 fL (8.0-11.0); Monocytes % 20.7; Neutrophils % 42.8; Platelet Count 137 x1000/uL (130-400); RBC 4.13 m/cumm (4.50-6.00); RBC Distribution Width 13.6 % (11.8-14.1); White Blood Cell Count 4.84 k/cumm (4.4-10.8)
[2018-03-16 11:19] LABS: INR 1.1 (1.0-3.5); PTT Activated 23.3 sec (21.0-31.4)
[2018-03-16 11:22] LABS: ALT 29 U/L (12-78); AST 30 U/L (15-37); Albumin 3.1 g/dL (3.4-5.0); Alkaline Phosphatase 47 U/L (46-116); Anion Gap 12.3 mmol/L (3-11); BUN 15 mg/dL (7-18); Bilirubin, Total 0.7 mg/dL (0.2-1.0); CO2 23.7 mmol/L (21.0-32.0); CREATININE 1.36 mg/dL (0.70-1.30); Calcium 8.7 mg/dL (8.5-10.1); Chloride 104 mmol/L (98-107); Estimated GFR 50.55 (mL/min/1.73m2); Glucose 121 mg/dL (70-100); Magnesium 1.8 mg/dL (1.8-2.4); Potassium 3.9 mmol/L (3.5-5.1); Sodium 140 mmol/L (136-145); Total Protein 6.4 g/dL (6.4-8.2)
[2018-03-16 11:26] LABS: Troponin I < 0.02 ng/mL (0.00-0.06)
[2018-03-16] MEDS: Omnipaque 350 MG/ML 100 ML BTL IJ (12:02)
[2018-03-16] MEDS: Normal Saline 500 ML IV (13:17)
[2018-03-16 15:11] LABS: Troponin I < 0.02 ng/mL (0.00-0.06)
== END 2018-03-16 16:18 | disposition home or self-care (01) ==
PROVIDERS: Emergency Provider Nurse Practitioner Family; PCP Family Medicine
DX: I48.92 Unspecified atrial flutter (principal); R55 Syncope and collapse; R00.0 Tachycardia, unspecified; R53.1 Weakness; I10 Essential (primary) hypertension
CPT/HCPCS: 36415; 71275; 80053; 93005; 96360; 99285; 70450; 83735; 84484; 85025; 85610; 85730; 93010; 99284; J3490

== ENCOUNTER → 2018-04-06 13:41 | Outpatient (BNVA) | payer MEDICARE, OTHER, SELFPAY | PROVIDERS: PCP Family Medicine; Visit Provider Psychiatry & Neurology Neurology | DX: S06.5X0D 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, subsequent encounter (principal); X58.XXXD Exposure to other specified factors, subsequent encounter; R41.3 Other amnesia; G40.109 Localization-related (focal) (partial) symptomatic epilepsy and epileptic syndromes with simple partial seizures, not intractable, without status epilepticus; F03.90 Unspecified dementia, unspecified severity, without behavioral disturbance, psychotic disturbance, mood disturbance, and anxiety; G21.19 Other drug induced secondary parkinsonism; T42.6X5A Adverse effect of other antiepileptic and sedative-hypnotic drugs, initial encounter; I10 Essential (primary) hypertension | CPT/HCPCS: 99214 ==

== ENCOUNTER 2018-07-07 12:28 | Outpatient (CLI) | payer MEDICARE, OTHER, SELFPAY ==
[2018-07-07 14:07] LABS: HCT 37.8 % (40.0-50.0); HGB 12.8 g/dL (13.5-17.5); Mean Corp. HGB Concentration 33.9 g/dL (32.0-36.0); Mean Corpuscular Volume 100.5 fL (80-95); Mean Platelet Volume 9.7 fL (8.0-11.0); Platelet Count 104 x1000/uL (130-400); RBC 3.76 m/cumm (4.50-6.00); White Blood Cell Count 4.31 k/cumm (4.4-10.8)
[2018-07-07 14:20] LABS: VALPROIC ACID 99.2 ug/mL (50-100)
[2018-07-07 15:06] LABS: Hemoglobin A1C 5.2 % (4.5-6.2)
[2018-07-07 15:14] LABS: ALT 26 U/L (12-78); AST 27 U/L (15-37); Albumin 3.4 g/dL (3.4-5.0); Alkaline Phosphatase 58 U/L (46-116); Anion Gap 6.4 mmol/L (3-11); BUN 16 mg/dL (7-18); CO2 29.6 mmol/L (21.0-32.0); CREATININE 1.07 mg/dL (0.70-1.30); Calcium 8.7 mg/dL (8.5-10.1); Chloride 106 mmol/L (98-107); Glucose 100 mg/dL (70-100); Potassium 4.4 mmol/L (3.5-5.1); Sodium 142 mmol/L (136-145); TSH (W/Ref FT4) 3.47 uIU/mL (0.358-3.74); Total Protein 6.6 g/dL (6.4-8.2); Vitamin B12 649 pg/mL (193-986)
== END 2018-07-07 12:48 ==
PROVIDERS: PCP Family Medicine; Visit Provider Family Medicine
DX: R41.3 Other amnesia (principal); G21.19 Other drug induced secondary parkinsonism; R26.81 Unsteadiness on feet; Z79.899 Other long term (current) drug therapy; Z51.81 Encounter for therapeutic drug level monitoring
CPT/HCPCS: 36415; 80053; 85027; 80164; 81003; 82607; 83036; 84443

== ENCOUNTER 2018-07-19 11:49 | Outpatient (REF) | payer MEDICARE, OTHER, SELFPAY ==
[2018-07-19 13:00] LABS: Abs Immature Grans 0.03 k/cumm (0.0-0.09); Absolute Basophil Count 0.01 k/cumm (0.0-0.2); Absolute Eosinophil Count 0.03 k/cumm (0.0-0.7); Absolute Monocyte Count 1.01 k/cumm (0.11-0.7); Absolute Neutrophil Count 2.71 k/cumm (1.2-6.7); Basophils % 0.2; Eosinophils % 0.5; HCT 36.2 % (40.0-50.0); HGB 12.5 g/dL (13.5-17.5); Immature Grans % 0.5; Lymphocytes % 35.7; Mean Corp. HGB Concentration 34.5 g/dL (32.0-36.0); Mean Corpuscular Hemoglobin 34.8 pg (27.0-33.0); Mean Corpuscular Volume 100.8 fL (80-95); Mean Platelet Volume 9.8 fL (8.0-11.0); Monocytes % 17.1; Platelet Count 136 x1000/uL (130-400); RBC 3.59 m/cumm (4.50-6.00); RBC Distribution Width 13.3 % (11.8-14.1); White Blood Cell Count 5.89 k/cumm (4.4-10.8)
[2018-07-19 13:15] LABS: Hemoglobin A1C 5.1 % (4.5-6.2)
[2018-07-19 13:16] LABS: VALPROIC ACID 69.1 ug/mL (50-100)
[2018-07-19 13:40] LABS: ALT 20 U/L (12-78); AST 23 U/L (15-37); Albumin 3.1 g/dL (3.4-5.0); Alkaline Phosphatase 60 U/L (46-116); BUN 11 mg/dL (7-18); Bilirubin, Total 0.6 mg/dL (0.2-1.0); CREATININE 1.04 mg/dL (0.70-1.30); Calcium 8.8 mg/dL (8.5-10.1); Chloride 105 mmol/L (98-107); Glucose 96 mg/dL (70-100); Potassium 4.3 mmol/L (3.5-5.1); Sodium 143 mmol/L (136-145); TSH (W/Ref FT4) 3.54 uIU/mL (0.358-3.74); Total Protein 6.1 g/dL (6.4-8.2); Vitamin B12 406 pg/mL (193-986)
== END 2018-07-19 12:09 ==
LOC: LBN 11:49
PROVIDERS: PCP Family Medicine; Visit Provider Family Medicine
DX: I10 Essential (primary) hypertension (principal); R53.83 Other fatigue; R63.4 Abnormal weight loss; R56.9 Unspecified convulsions; Z51.81 Encounter for therapeutic drug level monitoring; Z79.899 Other long term (current) drug therapy
CPT/HCPCS: 80053; 80164; 82607; 83036; 84443; 85025

== ENCOUNTER 2018-08-21 18:06 | Emergency (ER) | payer MEDICARE, OTHER, MEDICAID, SELFPAY ==
[2018-08-21 18:18] VITALS: BP 146/81; PULSE 118; RESP 16; TEMP 37.2; O2SAT 94
--- NOTE | 2018-08-21 18:20 | W.ED.GENAD ---
Discharge Plan Disposition Patient Disposition: HOME Discharge Details Chief Complaint: Fever Clinical Impression: Fever, Sore throat, Cough Primary Care Provider: Alvina Avila ED Provider: Austin Bolaños Home Meds and New Rx's Prescriptions: Continued divalproex 500 mg tablet,delayed release (DR/EC) 1,000 mg PO BID RF: 0 fluticasone propionate [Allergy Relief (fluticasone)] 50 mcg/actuation spray,suspension 2 spray RACHEL BID PRNRF: 0 metronidazole [Metrogel] 1 % gel with pump 1 applic TP BID PRNRF: 0 ropinirole 1 mg tablet 1 mg PO HS RF: 0 tacrolimus 0.1 % ointment 1 applic TP DAILY PRNRF: 0 venlafaxine 150 mg capsule,extended release 24hr 150 mg PO DAILY RF: 0 Cholestyramine Light 4 gram powder 4 gm PO BID Qty: 239.4 RF: 4 BD Blunt Plastic Cannula 17 x 3 mL syringe 1 ea Miscellaneous Qweek Qty: 12 RF: 4 cyanocobalamin (vitamin B-12) 1,000 mcg/mL solution 1,000 mcg IM .COMPLEX Qty: 4 RF: 4 tamsulosin [Flomax] 0.4 mg Capsule 0.4 mg PO HS RF: 0 cholecalciferol (vitamin D3) 5,000 UNIT tablet 5,000 unit PO DAILY RF: 0 Discharge Instructions Instructions: Fever in Adults (ED) Additional Instructions: Please drink plenty of fluid and allow for plenty of rest. Please contact your primary care physician to arrange follow-up. Return to the ER for any worsening or new concerning symptoms. Referrals: Alvina Avila MD, [place] [Primary Care Provider] - Discharge Data Discharge Date/Time-TO BE ENTERED AT DEPARTURE: 08/21/18 21:06 Medical Decision Making 18:25 -- 78yo m with history of dementia, sent from custodial with fever. Patient does note he has had recent cough. Patient is generally weak. Patient is saturating 94% RA in no respiratory distress. He is febrile and tachycardic. Plan to give ibuprofen for fever. Will check cxr and UA. Screening ECG was reviewed and interpreted by me: Normal sinus rhythm 80 bpm, normal axis, nondiagnostic. 20:30 -- cxr interpreted by me: no consolidation UA reviewed and not consistent with UTI. HR improved. BP improved. Still with low grade fever. Unclear etiology for fever. I suspect this is secondary to viral illness. notes that she has had recent URI with cough, sore throat and subjective fever. I suspect he has contracted this viral illness. I called [facility] and spoke with nurse about transfer of care and discharge plan. HPI General Mode of arrival: EMS. Date/Time Provider Initiated Documentation: 08/21/18 18:07. Limitations to Documentation: altered mental status. Information obtained by: RN/MD (custodial RN) and EMS. HPI Narrative: 78-year-old male with history of Parkinson's dementia, sent here today from [facility] rehab facility with concern for fever. History and review of systems is limited secondary to dementia. Per custodial staff, patient had fever earlier today. Patient is also complaining of difficulty breathing. Patient does tell me that he has had a cough recently. He is also had some sinus and discharge and felt he sounded congested. Patient denies dysuria. He has no pain. He does not feel short of breath at this time. He has had sore throat recently. Patient did receive Tylenol at 1715 prior to arrival. Related Data Home Medications Medication Instructions Recorded Confirmed cholecalciferol (vitamin D3) 5,000 unit PO DAILY 12/29/17 07/06/18 divalproex 500 mg tablet,delayed 1,000 mg PO BID tab 01/11/18 08/21/18 release fluticasone propionate 50 2 spray RACHEL BID PRN gm 01/11/18 08/21/18 mcg/actuation nasal spray,suspension metronidazole 1 % topical gel with 1 applic TP BID PRN gm 01/11/18 08/21/18 pump ropinirole 1 mg tablet 1 mg PO HS tab 01/11/18 08/21/18 tacrolimus 0.1 % topical ointment 1 applic TP DAILY PRN gm 01/11/18 08/21/18 venlafaxine ER 150 mg 150 mg PO DAILY 01/11/18 08/21/18 capsule,extended release 24 hr cholestyramine-aspartame 4 gram 4 gm PO BID #239.4 gm 02/04/18 08/21/18 oral powder syringe with cannula, disposable #12 ndl 05/03/18 07/06/18 17 x 3 mL cyanocobalamin (vit B-12) 1,000 1,000 mcg IM .COMPLEX #4 ml 06/25/18 08/21/18 mcg/mL injection solution tamsulosin [Flomax] 0.4 mg PO HS 08/21/18 08/21/18 Previous Rx's Medication Instructions Recorded cholestyramine-aspartame 4 gram 4 gm PO BID #239.4 gm 02/04/18 oral powder syringe with cannula, disposable #12 ndl 05/03/18 17 x 3 mL cyanocobalamin (vit B-12) 1,000 1,000 mcg IM .COMPLEX #4 ml 06/25/18 mcg/mL injection solution Allergies Allergy/AdvReac Type Severity Reaction Status Date / Time No Known Allergies Allergy Unverified 08/21/18 18:47 General ANDREA: 3 Review of Systems Review of Systems unreliable 2/2 dementia Constitutional Denies body ache(s) and Reports fever(s) ENT Reports sore throat Gastrointestinal Denies vomiting Genitourinary Denies dysuria PFS Medical History 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) Vitamin D deficiency (Chronic 07/05/15) Uses hearing aid (Chronic 05/25/17) Tubular adenoma (Chronic) 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, 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) Tachycardia-bradycardia (Chronic 10/14/12) TIA (transient ischemic attack) (Chronic 11/14/14) Rosacea (Chronic) Reflux gastritis (Chronic 06/13/14) Reflux esophagitis (Chronic 07/18/15) Primary malignant neoplasm of skin (Chronic) Pernicious anemia (Chronic 03/03/03) BRAULIO (obstructive sleep apnea) (Chronic 09/20/15) Neuropathy (Chronic 09/27/15) Atkinson's metatarsalgia (Chronic) Memory impairment (Chronic) Low back pain (Chronic 05/03/06) Intracranial bleeding (Chronic 06/08/17) Crushing injury of right ring finger, subsequent encounter (Chronic 05/25/17) Hyperlipidemia (Chronic 10/31/01) Hearing disorder (Chronic) Fatigue (Chronic 10/01/00) Essential hypertension (Chronic 02/03/13) Esophageal stricture (Chronic 06/02/14) Epilepsy, 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) Diverticulosis of colon without diverticulitis (Chronic 01/02/12) Depressive disorder (Chronic) Dementia (Chronic 08/10/17) Cubital tunnel syndrome on right (Chronic 05/23/15) Acute on chronic intracranial subdural hematoma (Chronic) Traumatic brain injury (Acute) Generalized muscle weakness (Chronic) Gait instability (Chronic) Allergic rhinitis (Resolved) Anemia (Resolved) Basal cell carcinoma of forehead (Resolved) Chest pain, unspecified (Resolved) Diarrhea (Resolved) Disorder of foot (Resolved) Epilepsy (Resolved) Hammer toe (Resolved) Lower urinary tract symptoms (LUTS) (Resolved 06/05/17) Polyp of colon (Resolved 05/03/05) Right hand pain (Resolved) Synovial cyst (Resolved) Trigger middle finger of right hand (Resolved 12/15/16) Urgency of urination (Resolved) ADHD (attention deficit hyperactivity disorder) Depressive disorder Diverticulosis Hypertension Pernicious anemia Surgical History H/O excision of mass (Resolved) History of Surgical Procedure (Resolved) History of orthopedic surgery (Resolved) S/P TURP (status post transurethral resection of prostate) (Resolved) S/P cholecystectomy (Resolved) Cholecystectomy Colonoscopy - MAC (~05/2005) Correction, Hammertoe (~03/2009) EGD - MAC Excision, Pilonidal Cyst Transurethral prostatectomy Family History Mother Essential hypertension Diabetes Heart disease Hyperlipidemia Myocardial infarction Father Personal history of malignant neoplasm Chronic obstructive lung disease Sister Personal history of malignant neoplasm Brother Essential hypertension Grandfather Heart disease Grandfather Heart disease Grandmother Heart disease Grandmother Essential hypertension Heart disease Social History Smoking/Tobacco Use Status: Former Tobacco Use Alcohol Intake: former Drug use: Never Substance use type: does not use Household members: spouse Do you feel safe at home: Yes Do you feel safe in your relationship?: Yes Exam Const General: cooperative and no acute distress HENMT Head: normocephalic and atraumatic Mouth: moist mucous membranes Throat: posterior oropharynx normal Eyes Conjunctivae: normal conjunctivae Sclera: normal sclerae Neck Neck: full ROM and supple Other: no rigidity Resp Auscultation: clear to auscultation bilaterally, no rales, no rhonchi and no wheezes Cardio Rate: regular rate and not tachycardic Rhythm: regular rhythm GI Palpation: soft, not firm, no guarding, no masses, not rigid and nontender Neuro General: alert, awake, oriented Patient Orientation: Person, Place and Confused and tone normal Extrem General: no edema
--- NOTE | 2018-08-21 18:27 | ED.GENADUL_ITS ---
Discharge Plan Disposition Patient Disposition: HOME Discharge Details Chief Complaint: Fever Clinical Impression: Fever, Sore throat, Cough Primary Care Provider: Alvina Avila ED Provider: Austin Bolaños Home Meds and New Rx's Prescriptions: Continued divalproex 500 mg tablet,delayed release (DR/EC) 1,000 mg PO BID RF: 0 fluticasone propionate [Allergy Relief (fluticasone)] 50 mcg/actuation spray, suspension 2 spray RACHEL BID PRNRF: 0 metronidazole [Metrogel] 1 % gel with pump 1 applic TP BID PRNRF: 0 ropinirole 1 mg tablet 1 mg PO HS RF: 0 tacrolimus 0.1 % ointment 1 applic TP DAILY PRNRF: 0 venlafaxine 150 mg capsule,extended release 24hr 150 mg PO DAILY RF: 0 Cholestyramine Light 4 gram powder 4 gm PO BID Qty: 239.4 RF: 4 BD Blunt Plastic Cannula 17 x 3 mL syringe 1 ea Miscellaneous Qweek Qty: 12 RF: 4 cyanocobalamin (vitamin B-12) 1,000 mcg/mL solution 1,000 mcg IM .COMPLEX Qty: 4 RF: 4 tamsulosin [Flomax] 0.4 mg Capsule 0.4 mg PO HS RF: 0 cholecalciferol (vitamin D3) 5,000 UNIT tablet 5,000 unit PO DAILY RF: 0 Discharge Instructions Instructions: Fever in Adults (ED) Additional Instructions: Please drink plenty of fluid and allow for plenty of rest. Please contact your primary care physician to arrange follow-up. Return to the ER for any worsening or new concerning symptoms. Referrals: Alvina Avila MD, [place] [Primary Care Provider] - Discharge Data Discharge Date/Time-TO BE ENTERED AT DEPARTURE: 08/21/18 21:06 Medical Decision Making 18:25 -- 78yo m with history of dementia, sent from assisted with fever. Patient does note he has had recent cough. Patient is generally weak. Patient is saturating 94% RA in no respiratory distress. He is febrile and tachycardic. Plan to give ibuprofen for fever. Will check cxr and UA. Screening ECG was reviewed and interpreted by me: Normal sinus rhythm 80 bpm, normal axis, nondiagnostic. 20:30 -- cxr interpreted by me: no consolidation UA reviewed and not consistent with UTI. HR improved. BP improved. Still with low grade fever. Unclear etiology for fever. I suspect this is secondary to viral illness. notes that she has had recent URI with cough, sore throat and subjective fever. I suspect he has contracted this viral illness. I called [facility] and spoke with nurse about transfer of care and discharge plan. HPI General Mode of arrival: EMS . Date/Time Provider Initiated Documentation: 08/21/18 18:07 . Limitations to Documentation: altered mental status . Information obtained by: RN/MD (assisted RN) and EMS . HPI Narrative: 78-year-old male with history of Parkinson's dementia, sent here today from [facility] rehab facility with concern for fever. History and review of systems is limited secondary to dementia. Per assisted staff, patient had fever earlier today. Patient is also complaining of difficulty breathing. Patient does tell me that he has had a cough recently. He is also had some sinus and discharge and felt he sounded congested. Patient denies dysuria. He has no pain. He does not feel short of breath at this time. He has had sore throat recently. Patient did receive Tylenol at 1715 prior to arrival. Related Data Home Medications Medication Instructions Recorded Confirmed cholecalciferol (vitamin D3) 5,000 unit PO DAILY 12/29/17 07/06/18 divalproex 500 mg tablet,delayed 1,000 mg PO BID tab 01/11/18 08/21/18 release fluticasone propionate 50 2 spray RACHEL BID PRN gm 01/11/18 08/21/18 mcg/actuation nasal spray,suspension metronidazole 1 % topical gel with 1 applic TP BID PRN gm 01/11/18 08/21/18 pump ropinirole 1 mg tablet 1 mg PO HS tab 01/11/18 08/21/18 tacrolimus 0.1 % topical ointment 1 applic TP DAILY PRN gm 01/11/18 08/21/18 venlafaxine ER 150 mg 150 mg PO DAILY 01/11/18 08/21/18 capsule,extended release 24 hr cholestyramine-aspartame 4 gram 4 gm PO BID #239.4 gm 02/04/18 08/21/18 oral powder syringe with cannula, disposable #12 ndl 05/03/18 07/06/18 17 x 3 mL cyanocobalamin (vit B-12) 1,000 1,000 mcg IM .COMPLEX #4 ml 06/25/18 08/21/18 mcg/mL injection solution tamsulosin [Flomax] 0.4 mg PO HS 08/21/18 08/21/18 Previous Rx's Medication Instructions Recorded cholestyramine-aspartame 4 gram 4 gm PO BID #239.4 gm 02/04/18 oral powder syringe with cannula, disposable #12 ndl 05/03/18 17 x 3 mL cyanocobalamin (vit B-12) 1,000 1,000 mcg IM .COMPLEX #4 ml 06/25/18 mcg/mL injection solution Allergies Allergy/AdvReac Type Severity Reaction Status Date / Time No Known Allergies Allergy Unverified 08/21/18 18:47 General ANDREA: 3 Review of Systems Review of Systems unreliable 2/2 dementia Constitutional Denies body ache(s) and Reports fever(s) ENT Reports sore throat Gastrointestinal Denies vomiting Genitourinary Denies dysuria PFS Medical History 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) Vitamin D deficiency (Chronic 07/05/15) Uses hearing aid (Chronic 05/25/17) Tubular adenoma (Chronic) 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, 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) Tachycardia-bradycardia (Chronic 10/14/12) TIA (transient ischemic attack) (Chronic 11/14/14) Rosacea (Chronic) Reflux gastritis (Chronic 06/13/14) Reflux esophagitis (Chronic 07/18/15) Primary malignant neoplasm of skin (Chronic) Pernicious anemia (Chronic 03/03/03) BRAULIO (obstructive sleep apnea) (Chronic 09/20/15) Neuropathy (Chronic 09/27/15) Atkinson's metatarsalgia (Chronic) Memory impairment (Chronic) Low back pain (Chronic 05/03/06) Intracranial bleeding (Chronic 06/08/17) Crushing injury of right ring finger, subsequent encounter (Chronic 05/25/17) Hyperlipidemia (Chronic 10/31/01) Hearing disorder (Chronic) Fatigue (Chronic 10/01/00) Essential hypertension (Chronic 02/03/13) Esophageal stricture (Chronic 06/02/14) Epilepsy, 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) Diverticulosis of colon without diverticulitis (Chronic 01/02/12) Depressive disorder (Chronic) Dementia (Chronic 08/10/17) Cubital tunnel syndrome on right (Chronic 05/23/15) Acute on chronic intracranial subdural hematoma (Chronic) Traumatic brain injury (Acute) Generalized muscle weakness (Chronic) Gait instability (Chronic) Allergic rhinitis (Resolved) Anemia (Resolved) Basal cell carcinoma of forehead (Resolved) Chest pain, unspecified (Resolved) Diarrhea (Resolved) Disorder of foot (Resolved) Epilepsy (Resolved) Hammer toe (Resolved) Lower urinary tract symptoms (LUTS) (Resolved 06/05/17) Polyp of colon (Resolved 05/03/05) Right hand pain (Resolved) Synovial cyst (Resolved) Trigger middle finger of right hand (Resolved 12/15/16) Urgency of urination (Resolved) ADHD (attention deficit hyperactivity disorder) Depressive disorder Diverticulosis Hypertension Pernicious anemia Surgical History H/O excision of mass (Resolved) History of Surgical Procedure (Resolved) History of orthopedic surgery (Resolved) S/P TURP (status post transurethral resection of prostate) (Resolved) S/P cholecystectomy (Resolved) Cholecystectomy Colonoscopy - MAC (~05/2005) Correction, Hammertoe (~03/2009) EGD - MAC Excision, Pilonidal Cyst Transurethral prostatectomy Family History Mother Essential hypertension Diabetes Heart disease Hyperlipidemia Myocardial infarction Father Personal history of malignant neoplasm Chronic obstructive lung disease Sister Personal history of malignant neoplasm Brother Essential hypertension Grandfather Heart disease Grandfather Heart disease Grandmother Heart disease Grandmother Essential hypertension Heart disease Social History Smoking/Tobacco Use Status: Former Tobacco Use Alcohol Intake: former Drug use: Never Substance use type: does not use Household members: spouse Do you feel safe at home: Yes Do you feel safe in your relationship?: Yes Exam Const General: cooperative and no acute distress HENMT Head: normocephalic and atraumatic Mouth: moist mucous membranes Throat: posterior oropharynx normal Eyes Conjunctivae: normal conjunctivae Sclera: normal sclerae Neck Neck: full ROM and supple Other: no rigidity Resp Auscultation: clear to auscultation bilaterally, no rales, no rhonchi and no wheezes Cardio Rate: regular rate and not tachycardic Rhythm: regular rhythm GI Palpation: soft, not firm, no guarding, no masses, not rigid and nontender Neuro General: alert, awake, oriented Patient Orientation: Person, Place and Confused and tone normal Extrem General: no edema
[2018-08-21] MEDS: Ibuprofen 600 MG TAB PO (18:47)
[2018-08-21 18:59] LABS: Bilirubin Negative (Negative); Blood Negative (Negative); Clarity Clear; Glucose Negative (Negative); Ketones 15 mg/dL (Negative); Leukocyte Esterase Negative (Negative); Nitrite Negative (Negative); Urobilinogen 0.2 EU/dL (Up TO 0.2); pH 5.5 (5-8)
--- NOTE | 2018-08-21 19:40 | DI.RAD_ITS ---
SYMPTOM/DIAGNOSIS: FEVER AP AND LATERAL CHEST: Comparison is made with 28 December 2017. The heart size is normal. The aorta is tortuous. There are old right rib fractures. The lungs appear clear. IMPRESSION: No acute abnormality.
[2018-08-21 21:01] VITALS: BP 141/84; PULSE 92; RESP 18; TEMP 37.6; O2SAT 94
--- NOTE | 2018-08-21 21:11 | DI.VRAD_ITS ---
EXAM: XR Chest, 2 Views EXAM DATE/TIME: 08/21/2018 6:20 PM CLINICAL HISTORY: 78 years old, male; Signs and symptoms; Fever; Patient HX: Patient unable to give clinical HX. TECHNIQUE: Imaging protocol: XR of the chest, 2 views. COMPARISON: CR CHEST 2 VIEWS PA,LAT 12/28/2017 4:52 PM FINDINGS: Lungs: Lungs are adequately inflated and symmetric. No focal consolidation or pulmonary edema. Pleural space: No pleural effusion. No pneumothorax. Heart/Mediastinum: Cardiomediastinal contours within normal limits. Again noted tortuosity of the thoracic aorta. Bones/joints: Old healed posterolateral right rib fractures are present, appropriate interval osseous remodeling . No acute osseous finding. Mild degenerative changes of the thoracic spine noted. Soft tissues: No focal soft tissue abnormailty. IMPRESSION: No acute cardiopulmonary finding. Dictated and Authenticated by: Klaus Cain MD. Ordering:MATILDE Avila MD
== END 2018-08-21 21:06 | disposition home or self-care (01) ==
PROVIDERS: Emergency Provider Student in an Organized Health Care Education/Training Program; PCP Family Medicine
DX: R50.9 Fever, unspecified (principal); J02.9 Acute pharyngitis, unspecified; R05 Cough; G20 Parkinson's disease; F02.80 Dementia in other diseases classified elsewhere, unspecified severity, without behavioral disturbance, psychotic disturbance, mood disturbance, and anxiety; I10 Essential (primary) hypertension
CPT/HCPCS: 87449; 99284; 71046; 81003

== ENCOUNTER 2018-08-23 02:42 | Emergency (ER) | payer MEDICARE, OTHER, MEDICAID, SELFPAY ==
--- NOTE | 2018-08-23 02:37 | DI.RAD_ITS ---
SYMPTOM/DIAGNOSIS: R/O PNEUMONIA PORTABLE CHEST: 08/23/18 5:17 A.M. The heart size is within normal limits for projection. The lungs are not well inflated. There are mild bibasilar densities, likely representing atelectasis. Pneumonia cannot be entirely excluded. Old right rib fractures are again noted. IMPRESSION: Question of bibasilar infiltrates versus atelectasis.
[2018-08-23 02:56] LABS: Abs Immature Grans 0.11 k/cumm (0.0-0.09); HCT 42.6 % (40.0-50.0); HGB 14.4 g/dL (13.5-17.5); Mean Corp. HGB Concentration 33.8 g/dL (32.0-36.0); Mean Corpuscular Hemoglobin 34.2 pg (27.0-33.0); Mean Corpuscular Volume 101.2 fL (80-95); Mean Platelet Volume 9.3 fL (8.0-11.0); RBC 4.21 m/cumm (4.50-6.00); RBC Distribution Width 13.6 % (11.8-14.1); White Blood Cell Count 16.82 k/cumm (4.4-10.8)
[2018-08-23 02:58] VITALS: BP 160/98; PULSE 133; RESP 44; TEMP 36.7; O2SAT 98
[2018-08-23] MEDS: Normal Saline 500 ML 1000 ML IV (03:06)
[2018-08-23 03:08] LABS: ALT 18 U/L (12-78); AST 17 U/L (15-37); Albumin 3.1 g/dL (3.4-5.0); Alkaline Phosphatase 49 U/L (46-116); Anion Gap 9.5 mmol/L (3-11); Bilirubin, Total 1.6 mg/dL (0.2-1.0); CO2 28.5 mmol/L (21.0-32.0); Chloride 102 mmol/L (98-107); Potassium 4.5 mmol/L (3.5-5.1); Sodium 140 mmol/L (136-145); Total Protein 6.8 g/dL (6.4-8.2)
[2018-08-23 03:19] LABS: NT-proBNP 634 pg/mL
[2018-08-23] MEDS: LORazepam 2 MG/ML VIAL 0.5 MG IVP (03:20)
[2018-08-23] MEDS: MORPHine 10 MG/ML VIAL 2 MG IVP (03:20)
--- NOTE | 2018-08-23 03:20 | W.ED.GENAD ---
Medical Decision Making <Jakub Henriquez, - Last Filed: 08/23/18 23:44> This is a 78-year-old male with a past medical history of intracranial bleed with subsequent mental status change, severe dementia, chronic weakness, who presents from the [facility] for acute respiratory distress. He has rhonchorous breath sounds, he is tachycardic, febrile, tachypneic, and hypertensive. He was seen here yesterday, which time he had negative chest x-ray and a benign EKG. It was thought at that time that his symptoms are most likely secondary to a viral etiology, as his had a similar sick episode with similar symptoms 1-2 weeks ago. On arrival here in the ER the patient was in notable respiratory distress with signs and symptoms concerning for sepsis. Initial lab orders were placed however when the arrived we had a long discussion with her regarding the patient's prognosis, the potential need for drastic intervention, including potential intubation, versus the alternative of his predetermined wishes as noted in his very extensive end-of-life care paperwork. I discussed with the potential aggressive medical management versus mild medical intervention versus strictly focusing on hospice and comfort measures and at this time utilizing the patient's paperwork and the wishes of the the , the patient will be transitioned slowly to hospice, family is requesting that we hold off on any medications not specifically geared towards comfort. Will start with morphine, Ativan. Currently there are staffing issues in the hospital secondary to inadequate nursing staffing on the floor. The patient will be held in the ER for the time being until additional staffing can be found so the patient can be properly admitted. 7:39 AM There is still currently nursing staffing issues here at the hospital. We have elicited the help of case management. The case will be signed out to my colleague Dr. Ghazal Bolaños for final placement. EKG 2: 54 Rate 127, QTc 430, QRS 88, atrial fibrillation, slightly rapid ventricular response. No significant ST elevations, mild depression in the anterior lateral leads. CLINICAL HISTORY: 78 years old, male; Signs and symptoms; Other: R/O pneumonia; Patient HX: Fever. TECHNIQUE: Imaging protocol: XR of the chest, 1 view. COMPARISON: CR XR CHEST 2V PA LATERAL 08/21/2018 7:30 PM FINDINGS: The lungs are clear of infiltrate. There are no pleural effusions or pneumothorax. The heart size and pulmonary vascularity are normal. IMPRESSION: No active disease. Dictated and Authenticated by: Juan Daniel Burns MD. Ordering:MARY Call MD <Ghazal Bolaños MD - Last Filed: 08/23/18 15:45> Patient signed out to me at time of discharge by Dr. Henriquez's with continued end-of-life comfort care placement pending. My examination patient is sleeping with unlabored breathing. His heart rate remains tachycardic 120s to 130. I discussed this lack of bed availability at this facility with the patient's , as Dr. Henriquez had previously as well. Patient has been seen by care management and hospice. Plan at this time is to transfer patient back to the [facility] with hospice care. Patient's verbalized understanding of this plan and was comfortable with it. All questions were answered. We will continue to monitor for comfort. It is my assessment that the patient's acute illness in the setting of his chronic medical problems is likely to be terminal in the short-term. Patient's verbalized understanding of this. 12:30: Pt re-evaluated several times, breathing comfortably without further morphine. Patient's continues to be at bedside, patient's son now at bedside as well. Family with multiple questions at this time regarding nature of hospice care at the [facility], including nursing staff, use of IVs, private versus shared room, and ability to increase dosing of medication should patient require it. I did speak with Franci of hospice over the phone, and relayed information to the patient's family. All questions were answered. Patient's family verbalized understanding of the plan for comfort measures at the [facility], with reevaluation of plan at any time if they so desire or if patient's condition changes. Plan was initially for morphine prior to transfer, however patient transferred to EMS stretcher without waking, appears very comfortable. No indication for morphine at this time. Patient left the emergency department with EMS without incident. HPI <Jakub Henriquez DO - Last Filed: 08/23/18 23:44> General Date/Time Provider Initiated Documentation: 08/23/18 03:14. 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 Patient was seen and assessed here in the ED yesterday, at that time he had a negative chest x-ray, negative influenza, and a benign EKG. He was discharged back to the [facility] at that time. Throughout the day today he is progressively declined, has become more short of breath, had a recurrent fever that they have been unable to control with antipyretics, and has been in worse respiratory distress. EMS was contacted and upon their arrival he was in the 80s on room air. He had a notable cough, and a change in his mental status. is at bedside, and states that he has been worsening throughout the night, and his wishes are that he remained comfortable. The patient's CODE STATUS is DNR/DNI, and he is very clear paperwork delineating his desire to be made comfortable and scenarios like this. Related Data Home Medications Medication Instructions Recorded Confirmed cholecalciferol (vitamin D3) 5,000 unit PO DAILY 12/29/17 07/06/18 divalproex 500 mg tablet,delayed 1,000 mg PO BID tab 01/11/18 08/21/18 release fluticasone propionate 50 2 spray RACHEL BID PRN gm 01/11/18 08/21/18 mcg/actuation nasal spray,suspension metronidazole 1 % topical gel with 1 applic TP BID PRN gm 01/11/18 08/21/18 pump ropinirole 1 mg tablet 1 mg PO HS tab 01/11/18 08/21/18 tacrolimus 0.1 % topical ointment 1 applic TP DAILY PRN gm 01/11/18 08/21/18 venlafaxine ER 150 mg 150 mg PO DAILY 01/11/18 08/21/18 capsule,extended release 24 hr cholestyramine-aspartame 4 gram 4 gm PO BID #239.4 gm 02/04/18 08/21/18 oral powder syringe with cannula, disposable #12 ndl 05/03/18 07/06/18 17 x 3 mL cyanocobalamin (vit B-12) 1,000 1,000 mcg IM .COMPLEX #4 ml 06/25/18 08/21/18 mcg/mL injection solution tamsulosin [Flomax] 0.4 mg PO HS 08/21/18 08/21/18 Previous Rx's Medication Instructions Recorded cholestyramine-aspartame 4 gram 4 gm PO BID #239.4 gm 02/04/18 oral powder syringe with cannula, disposable #12 ndl 05/03/18 17 x 3 mL cyanocobalamin (vit B-12) 1,000 1,000 mcg IM .COMPLEX #4 ml 06/25/18 mcg/mL injection solution Allergies Allergy/AdvReac Type Severity Reaction Status Date / Time No Known Allergies Allergy Unverified 08/21/18 18:47 General Stated Complaint: Fever ANDREA: 2 Review of Systems <Jakub Henriquez DO - Last Filed: 08/23/18 23:44> Review of Systems All systems reviewed & are unremarkable except as noted in HPI and below PFSH <Jakub Henriquez DO - Last Filed: 08/23/18 23:44> Social History Smoking/Tobacco Use Status: Former Tobacco Use Alcohol Intake: former Drug use: Never Substance use type: does not use Household members: spouse Do you feel safe at home: Yes Do you feel safe in your relationship?: Yes Exam <Jakub Henriquez DO - Last Filed: 08/23/18 23:44> Narrative Exam Narrative: 1.Const: Elderly, thin. 2.Eyes: PERRL, no conjunctival injection, and symmetrical lids. 3.ENT: Atraumatic external nose and ears. Moist MM. Neck: Symmetric, trachea midline, No thyromegaly. 4.CVS: +S1/S2, No murmurs or gallops. Peripheral pulses 2+ and equal in all extremities. Brisk capillary refill in all extremities. 5.RESP: Notable tachypnea, respiratory distress, rhonchorous breath sounds 6.GI: Soft, Nontender/Nondistended, No hepatosplenomegaly. No guarding or rebound. 7.MSK: Normocephalic/Atraumatic, Extremities w/o deformity or ttp No cyanosis or clubbing, Normal movement of all extremities 8.Skin: Warm, Dry. No rashes or lesions. 9.Neuro: outbound telemarketer II-XII grossly intact. Sensation grossly intact, no focal neurologic deficits. 10.Psych: Altered,A and O x0 Course <Jakub Henriquez DO - Last Filed: 08/23/18 23:44> Vital Signs Temperature 36.7 C 08/23/18 02:58 Pulse 133 H 08/23/18 02:58 Respiratory Rate 44 H 08/23/18 02:58 Blood Pressure 160/98 H 08/23/18 02:58 Pulse Oximetry 98 08/23/18 02:58 Temperature 36.7 C 08/23/18 02:58 Temperature Source Temporal Artery Scan 08/23/18 02:58 Pulse 133 H 08/23/18 02:58 Respiratory Rate 44 H 08/23/18 02:58 Respiratory Effort Labored 08/23/18 02:58 Blood Pressure 160/98 H 08/23/18 02:58 Pulse Oximetry 98 08/23/18 02:58 Oxygen Delivery Method Non-Rebreather 08/23/18 02:58 Oxygen Flow Rate 10 08/23/18 02:58 Lab/Test Results Lab/Test Results: 08/23/18 02:50 Blood Blood Culture - Pending 08/23/18 02:37 Blood Blood Culture - Pending Sign Out <Jakub Henriquez DO - Last Filed: 08/23/18 23:44> Sign Out Data: Sign Out Comment: Potential transfer to facility for end-of-life care versus admission here. Admission orders are already in under Dr. Damaris Monge updated by Jakub Henriquez DO at 08/23/18 07:44
[2018-08-23 03:32] LABS: BUN 16 mg/dL (7-18); CREATININE 1.35 mg/dL (0.70-1.30); Estimated GFR 50.98 (mL/min/1.73m2); Glucose 127 mg/dL (70-100)
[2018-08-23 03:33] LABS: Calcium 8.3 mg/dL (8.5-10.1)
[2018-08-23] MEDS: Ketorolac 30 MG/ML VIAL IVP (03:34)
[2018-08-23 03:39] LABS: Absolute Lymphocyte Count 1.35 k/cumm (1.2-3.4); Absolute Monocyte Count 2.52 k/cumm (0.11-0.7); Absolute Neutrophil Count 12.95 k/cumm (1.2-6.7); Diff Comment Manual Differential; Platelet Count 101 x1000/uL (130-400); RBC Morphology Normal
[2018-08-23] MEDS: Glycopyrrolate 0.2 MG/1 ML VIAL 0.1 MG IVP (03:46)
--- NOTE | 2018-08-23 04:01 | DI.VRAD_ITS ---
EXAM: XR Chest, 1 View EXAM DATE/TIME: 08/23/2018 2:59 AM CLINICAL HISTORY: 78 years old, male; Signs and symptoms; Other: R/O pneumonia; Patient HX: Fever. TECHNIQUE: Imaging protocol: XR of the chest, 1 view. COMPARISON: CR XR CHEST 2V PA LATERAL 08/21/2018 7:30 PM FINDINGS: The lungs are clear of infiltrate. There are no pleural effusions or pneumothorax. The heart size and pulmonary vascularity are normal. IMPRESSION: No active disease. Dictated and Authenticated by: Juan Daniel Burns MD. Ordering:MARY Call MD
[2018-08-23] MEDS: Normal Saline Flush 10 ML SYR IVP (06:20)
[2018-08-23 13:38] VITALS: BP 160/98; PULSE 133; RESP 44; TEMP 36.7; O2SAT 98
== END 2018-08-23 13:37 | disposition skilled nursing facility (03) ==
PROVIDERS: Student in an Organized Health Care Education/Training Program; Emergency Provider Student in an Organized Health Care Education/Training Program; PCP Family Medicine
DX: J80 Acute respiratory distress syndrome; R00.0 Tachycardia, unspecified; G20 Parkinson's disease; F02.80 Dementia in other diseases classified elsewhere, unspecified severity, without behavioral disturbance, psychotic disturbance, mood disturbance, and anxiety
CPT/HCPCS: 36415; 80053; 87040; 93005; 96361; 96372; 96374; 96375; 99285; 71045; 83880; 85025; 93010; J1885; J2060